=== PATIENT | female | born 2000 | race Caucasian/White ===

== ENCOUNTER 2025-07-26 13:37 | Outpatient (OUT) | payer OTHER, SELFPAY ==
--- NOTE | 2025-07-26 13:53 | US_ITS ---
[place] [address] Patient Name: JOSE L CANALES MRN: [id number] date: 2000 Sex: F Assigned Patient Location: Current Patient Location: Accession/Order Number: [id number] Exam Date: 07/26/2025 13:55 Report Date: 07/26/2025 16:50 At the request of: ROLANDO CALL APRN, CNM Procedure: US OB BPP w non-stress US OB BPP w non-stress 07/26/2025 2:07 PM SIGNS AND SYMPTOMS: ^Post Term PROTOCOL: Transabdominal sonographic imaging of the gravid uterus COMPARISON: None FINDINGS: Estimated age: 40 weeks and 2 days heart rate: 139 bpm Amniotic fluid index: 19.68 cm with the deepest vertical pocket measuring 7 cm. Biophysical profile: breathing movements: 2/2 Gross body movements: 2/2 tone: 2/2 Amniotic fluid volume: 2/2 US/US OB BPP w non-stress IMPRESSION: Biophysical profile score: 8/8 Impression dictated by: Tr Theodore M.D. 07/26/2025 4:50 PM Dictation Location: [place] [address] Electronically authenticated by: [id number] Y Date: 07/26/2025 16:50
[2025-07-26 14:11] VITALS: BP 114/69; PULSE 109
== END 2025-07-26 14:37 | disposition home or self-care (01) ==
LOC: US 13:42 → FBC 14:08
PROVIDERS: PCP Family Medicine; Visit Provider Midwife
DX: O26.893 Other specified pregnancy related conditions, third trimester (principal); O48.0 Post-term pregnancy
CPT/HCPCS: 76818

== ENCOUNTER 2025-07-29 15:27 | Outpatient (OUT) | payer OTHER, SELFPAY ==
--- NOTE | 2025-07-29 | US_ITS ---
[address] [address] Patient Name: JOSE L CANALES MRN: [id number] date: 2000 Sex: F Assigned Patient Location: [facility] Current Patient Location: [facility] Accession/Order Number: [id number] Exam Date: 07/29/2025 15:35 Report Date: 07/29/2025 16:17 At the request of: ROLANDO CALL APRN, CNM Procedure: US OB BPP w non-stress Biophysical profile. Reason for exam: Post dates COMPARISON: 07/26/2025 TECHNIQUE: Transabdominal imaging of the gravid uterus was obtained. FINDINGS: The network firewall engineer reports a BPP of 8 out of 8. DAVID is normal at 13.1 cm. heart rate 136 bpm. US/US OB BPP w non-stress IMPRESSION: BPP 8 out of 8. Impression dictated by: Siva Sung Jr., D.O. 07/29/2025 4:17 PM Dictation Location: [place] [address] Electronically authenticated by: [id number] Y Date: 07/29/2025 16:17
[2025-07-29 15:49] VITALS: BP 125/77; PULSE 92
== END 2025-07-29 16:45 | disposition home or self-care (01) ==
LOC: US 15:32 → FBC 15:33
PROVIDERS: PCP Family Medicine; Visit Provider Midwife
DX: O26.893 Other specified pregnancy related conditions, third trimester (principal); O48.0 Post-term pregnancy; Z3A.40 40 weeks gestation of pregnancy
CPT/HCPCS: 76818

== ENCOUNTER 2025-07-31 07:48 | Inpatient (IN) | payer OTHER, SELFPAY ==
--- OUTSIDE RECORDS SUMMARY | 2025-07-22 13:30 | XMS_ITS | Encounter Summary ---
Author Organization [facility] Address [address] [place] [address] Care Team Providers Care Labor Relations Director Name Role Phone Marino Joseph MD Primary Care Provider [phone] Encounter Details DateTypeDepartmentCare Team (Latest Contact Info)Xkpizoidspa09/08/2025 1:30 PM ESTRoutine [facility] [address] [place] [address] Maria T Montejo, CNM [address] [place], [place] [id number] Encounter for care of first , third trimester ([facility]) (Primary Dx) Social History Tobacco UseTypesPacks/DayYears UsedDateSmoking Tobacco: NeverPassive Smoke Exposure: PastSmokeless Tobacco: NeverAlcohol UseStandard Drinks/WeekCommentsYes 0 (1 standard drink = 0.6 oz pure alcohol)Caffine intake: 3-4 per week, energy drinks while on campus, not while home for the summerHumiliation, Afraid, Rape, and Kick questionnaireAnswerDate RecordedWithin the last year, have you been afraid of your partner or ex-partner?No06/29/2023Within the last year, have you been humiliated or emotionally abused in other ways by your partner or ex-partner?Yes06/29/2023Within the last year, have you been kicked, hit, slapped, or otherwise physically hurt by your partner or ex-partner?No06/29/2023 Within the last year, have you been raped or forced to have any kind of sexual activity by your partner or ex-partner?No06/29/2023Social Connection and Isolation PanelAnswerDate RecordedIn a typical week, how many times do you talk on the phone with family, friends, or neighbors?Three times a week06/29/2023How often do you get together with friends or relatives?More than three times a week 06/29/2023How often do you attend restorationist or anglican services?Patient declined 06/29/2023o you belong to any clubs or organizations such as restorationist groups, unions, fraternal or athletic groups, or school groups?No06/29/2023How often do you attend meetings of the clubs or organizations you belong to?Patient declined 06/29/2023re you , , , , never , or living with a partner?Patient xoivsxki53/15/2023UDIT-CAnswerDate RecordedQ1: How often do you have a drink containing alcohol?2-4 times a month2023Q2: How many drinks containing alcohol do you have on a typical day when you are drinking?1 or Q3: How often do you have six or more drinks on one occasion?Never2023Overall Financial Resource Strain (CARDIA)AnswerDate RecordedHow hard is it for you to pay for the very basics like food, housing, medical care, and heating?Not very hard06/29/2023HQ-2AnswerDate RecordedPatient Health Questionnaire-2 Uvuqj743Fin[facility] [place] of Occupational Health - Occupational Stress QuestionnaireAnswerDate RecordedDo you feel stress - tense, restless, nervous, or anxious, or unable to sleep at night because your mind is troubled all the time - these days?To some xbenkt9606/29/2023Exercise Vital SignAnswerDate RecordedOn average, how many days per week do you engage in moderate to strenuous exercise (like a brisk walk)?Patient mditlnjc93/15/2023On average, how many minutes do you engage in exercise at this level?Patient ajyxpqgr45/15/2023Hunger Vital SignAnswerDate RecordedWithin the past 12 months, you worried that your food would run out before you got the money to buymore. Never true06/29/2023Within the past 12 months, the food you bought just didn't last and you didn't have money to get more.Never true06/29/2023RAPARE - TransportationAnswerDate RecordedIn the past 12 months, has lack of transportation kept you from medical appointments or from getting medications?No 06/29/2023In the past 12 months, has lack of transportation kept you from meetings, work, or from getting things needed for daily living?No06/29/2023 Housing Stability Vital SignAnswerDate RecordedIn the last 12 months, was there a time when you were not able to pay the mortgage or rent on time?No06/29/2023In the last 12 months, how many places have you lived?In the last 12 months, was there a time when you did not have a steady place to sleep or slept in [facility] (including now)?No06/29/2023Estimated Date of Delivery ShljogtgAxd88/10/2025Based on UltrasoundSex and Gender InformationValueDate RecordedSex Assigned at XfbouTemyal46/12/2023 9:46 AM EDTLegal SexFemale 10/27/2022 6:38 PM EDTGender FucryfonVdmrkc91/12/2023 9:46 AM EDTSexual OrientationChoose not to qivewfjn08/12/2023 9:46 AM EDTdocumented as of this encounter Last Filed Vital Signs Vital SignReadingTime TakenCommentsBlood Ryguozyi670/7007/22/2025 1:22 PM EST Pulse--Temperature--Respiratory Rate--Oxygen Saturation--Inhaled Oxygen Concentration--Uedzpx37.3 kg (166 lb)07/22/2025 1:22 PM ESTHeight--Body Mass Index34.22109/01/2024 9:04 AM ESTdocumented in this encounter Progress Notes * Tawanna Olivas MA - 07/22/2025 1:30 PM EST Subjective No chief complaint on file. Ildefonso Chang is a 24 y.o. at 39w5d with a working estimated date of delivery of 07/24/2025, by Ultrasound who presents for a routine visit. She denies vaginal bleeding, leakage of fluid, decreased movements, or contractions. OB History Para Term AB Living 2 SAB IAB Ectopic Multiple Live Births # Outcome Date GA Lbr Vin/2nd Weight Sex Type Anes PTL Lv 2 Current 1 Her is complicated by: Late transfer of care, anxiety/depression Objective Physical Exam Weight: 166 lb Expected Total Weight Gain: 15 lb-25 lb Pregravid BMI: 27.22 BP: 110/70 Urine protein-negative Urine glucose-negative Assessment/Plan Continue vitamin. Labs reviewed. GBS taken. Expected mode of delivery Follow up in 1 week for a routine visit. * Maria T Montejo CNM - 07/22/2025 1:30 PM EST Subjective No chief complaint on file. Ildefonso Chang is a 24 y.o. at 39w5d with a working estimated date of delivery of 07/24/2025, by Ultrasound who presents for a routine visit. She denies vaginal bleeding, leakage of fluid, decreased movements, or contractions. OB History Para Term AB Living 2 SAB IAB Ectopic Multiple Live Births # Outcome Date GA Lbr Vin/2nd Weight Sex Type Anes PTL Lv 2 Current 1 Her is complicated by: Late transfer to [place], relocated Objective Physical Exam Weight: 166 lb Expected Total Weight Gain: 15 lb-25 lb Pregravid BMI: 27.22 BP: 110/70 Urine protein negative Urine glucose negative Assessment/Plan Continue vitamin. Labs reviewed. GBS taken. Expected mode of delivery Follow up in 1 week for a routine visit. documented in this encounter Plan of Treatment DateTypeDepartmentCare Team (Latest Contact Info)Jvyhqciwwbe25/17/2025 9:30 AM ESTRoutine [facility] [address] [place] [address] Maria T Montejo CNM [address] [place], [place] [id number] documented as of this encounter Goals GoalPatient Goal TypeAssociated ProblemsRecent ProgressPatient-Stated?Author Reminders Care PlanOB RemindersNoOpen Scheduling, Backgrounddocumented as of this encounter Visit Diagnoses Diagnosis Encounter for care of first , third trimester ([facility])- Primary documented in this encounter Additional Health Concerns Active ProblemsNoted DateDiagnosed DateOB Wolegxjae22/03/2025 AssessmentNoted TimePHQ-9 Depression Total Score: 12009/22/2023 2:00 PM EST documented as of this encounter Care Teams Team MemberRelationshipSpecialtyStart DateEnd Date Marino Joseph MD [address] [place], [place] [id number] PCP - GeneralFamily Dlxojcuh63/12/25documented as of this encounter
--- OUTSIDE RECORDS SUMMARY | 2025-07-30 15:15 | XMS_ITS | Encounter Summary ---
Author Organization [facility] Address [address] [place] [place] [address] Care Team Providers Care Information Developer Name Role Phone Marino Joseph MD Primary Care Provider [phone] Encounter Details DateTypeDepartmentCare Team (Latest Contact Info)Hxvhaktujqp50/16/2025 3:15 PM ESTAncillary Procedure [facility] [address] [place] [address] Post-term , 40-42 weeks of gestation ([facility]) Social History Tobacco UseTypesPacks/DayYears UsedDateSmoking Tobacco: NeverPassive [...] a week 06/29/2023How often do you attend christianity or anabaptist services?Patient declined 06/29/2023o you belong to any clubs or organizations such as christianity groups, unions, fraJukely or athletic groups, or school groups?No06/29/2023How often do you attend meetings of the clubs or organizations you belong to?Patient declined 06/29/2023re you , , , , never , or living with a partner?Patient angyjcuw29/15/2023UDIT-CAnswerDate RecordedQ1: How often do you have a [...] and heating?Not very hard06/29/2023HQ-2AnswerDate RecordedPatient Health Questionnaire-2 Rvggk148[facility] [place] of Occupational Health - Occupational Stress QuestionnaireAnswerDate RecordedDo you feel stress - tense, restless, nervous, or anxious, or unable to sleep at night because your mind is troubled all the time - these days?To some nvenfu9706/29/2023Exercise Vital SignAnswerDate RecordedOn average, how many days per week do you engage in moderate to strenuous exercise (like a brisk walk)?Patient hvluklcd68/15/2023On average, how many minutes do you engage in exercise at this level?Patient cwdcrqiq84/15/2023Hunger Vital SignAnswerDate RecordedWithin the past 12 months, [...] steady place to sleep or slept in [facility] (including now)?No06/29/2023Estimated Date of Delivery NyryuhfnFuu61/10/2025Based on UltrasoundSex and Gender InformationValueDate RecordedSex Assigned at CekcfVzhnie24/12/2023 9:46 AM EDTLegal SexFemale 10/27/2022 6:38 PM EDTGender GlcgixazSdcbkv69/12/2023 9:46 AM EDTSexual OrientationChoose not to adxpxxwr66/12/2023 9:46 AM EDTdocumented as of this encounter Plan of Treatment DateTypeDepartmentCare Team (Latest Contact Info)Zbawnfuzrkq45/17/2025 9:30 AM ESTRoutine [facility] [address] [place] [address] Maria T Montejo, EVY [address] [place] [address] NameTypePriorityAssociated DiagnosesDate/TimeUS OB follow up transabdominal approachImagingRoutine Post-term , 40-42 weeks of gestation ([facility]) 07/30/2025 3:42 PM ESTdocumented as of this encounter Goals GoalPatient Goal TypeAssociated ProblemsRecent ProgressPatient-Stated?Author Reminders Care PlanOB RemindersNoOpen Scheduling, Backgrounddocumented as of this encounter Visit Diagnoses Diagnosis Post-term , 40-42 weeks of gestation ([facility]) documented in this encounter Additional Health Concerns Active ProblemsNoted DateDiagnosed DateOB Rpsidvsmx60/03/2025 AssessmentNoted TimePHQ-9 Depression Total Score: 12009/22/2023 2:00 PM EST documented as of this encounter Care Teams Team MemberRelationshipSpecialtyStart DateEnd Date Marino Joseph MD [address] [place] [address] PCP - GeneralFamily Qbhamdoh79/12/25documented as of this encounter
[2025-07-31] VITALS (60 sets, daily range): BP systolic 91–162; BP diastolic 50–99; PULSE 90–157; TEMP 36.9–38.1
--- OUTSIDE RECORDS SUMMARY | 2025-07-31 02:16 | XMS_ITS | Clinical Summary ---
Author Organization [facility] Address [address] [place] [address] Care Team Providers Care Development Mgr Name Role Phone Marino Joseph MD Primary Care Provider [phone] Allergies No known active allergies Medications MedicationSigDispense QuantityRefillsLast FilledStart DateEnd DateStatus Vit-Fe Fumarate-FA ( Vitamins) 28-0.8 MG tablet Indications: related condition in third trimester (HHS-HCC)Take 1 tablet by mouth Daily 30 tablet 5Active Vit-Fe Fumarate-FA ( Vitamins) 28-0.8 MG tablet Take 1 tablet by mouth DailyDiscontinued(Reorder) Active Problems ProblemNoted DateDiagnosed DateTendonitis of ankle, left06/29/2023Tendonitis of wrist, left06/29/20231703Qcqbgbe45/06/2023Elevated platelet count01/18/2023Moderate episode of recurrent major depressive netukccz95/06/2023Overweight (BMI 25.0-29.9)01/18/2023Estimated Date of UtscejfgQzziglqcQkg98/10/2025ased on Ultrasound Resolved Problems ProblemNoted DateDiagnosed DateResolved DateAllergic wrvyqwys78/06/2023 06/29/2023Enlarged uapfvtq95 Encounters DateTypeDepartmentCare ZvhqZfcrsamxpdo69/16/2025 3:15 PM ESTAncillary Procedure [facility] [address] [phone] Post-term , 40-42 weeks of gestation ([facility])07/30/2025Travel 07/30/2025Orders Only [facility] [address] [place] [phone] Rolando Montejo CNM Post-term , 40-42 weeks of gestation ([facility])5Clinisync Result Encounter [facility] External Department Unsolicited Rolando Montejo CNM 5Clinisync Result Encounter [facility] External Department Unsolicited Rolando Montejo CNM 07/26/2025Orders Only [facility] [address] [place] [phone] Rolando Montejo CNM Post-term , 40-42 weeks of gestation ([facility])07/22/2025 1:30 PM EST Routine [facility] [address] [place] [phone] Rolando Montejo CNM Encounter for care of first , third trimester ([facility]) (Primary Dx)5Bamboo flowsheet [facility] [address] [place] [phone] Rolando Montejo CNM 07/15/2025 1:30 PM ESTRoutine [facility] [address] [place] [phone] Rolando Montejo CNM Encounter for care of first , third trimester ([facility]) (Primary Dx)5Bamboo flowsheet [facility] [address] [place] [phone] Rolando Montejo CNM 07/08/2025Refill [facility] [address] [place] [address] Marino Joseph MD related condition in third trimester ([facility])07/02/2025 9:00 AM EST Office Visit [facility] [address] [facility] [address] Marino Joseph MD Routine general medical examination at a health care facility (Primary Dx) 07/02/20257674Ztrpql35/17/2025 2:00 PM ESTInitial [facility] [address] [place] [address] Rolando Montejo CNM GA: 15z6p7008/31/2024amboo flowsheet [facility] [address] [place] [address] Rolando Montejo CNM 06/20/2025Telephone [facility] [address] [facility] [phone] Marino Joseph MD due for apptfrom Last 3 Months Immunizations ImmunizationAdministration DatesNext DueDTaP, Hbnxvogbzea01/20/2005,09/04/2001, 03/01/2001,2000,2000HPV, Amufrflszrce30/15/2014,08/17/2013, 06/28/2013Hep A, ped/adol, 2 dose12/27/2013,06/28/2013Hep B, Adolescent or Uxmgkgczr64/21/2002,2000,2000IPV09/03/2004,03/01/2001,2000, 2000Influenza, injectable, quadrivalent, preservative free04/27/2019, 05/26/2017,06/09/2015Influenza, seasonal, jbsyjrvqrf02/15/6326NYW5409/03/2004, 09/04/2001Meningococcal JQQ1P7606/28/2013Tdap04/09/20135739Ueyenbikh97/03/2014, 09/04/2001 Family History Medical HistoryRelationNameCommentsAlcohol abuseNeg HxDrug abuseNeg HxMelanoma Neg HxRelationNameStatusCommentsFatherAliveMotherAliveSister2 Social History Tobacco UseTypesPacks/DayYears UsedDateSmoking Tobacco: NeverPassive Smoke Exposure: PastSmokeless Tobacco: Never Tobacco Cessation:Counseling Given: Not Answered Alcohol UseStandard Drinks/WeekCommentsYes0 (1 standard drink = 0.6 oz pure alcohol)Caffine intake: 3-4 per week, energy drinks while on campus, not while home for the summerHumiliation, Afraid, Rape, and Kick questionnaireAnswerDate RecordedWithin the last year, have you been afraid of your partner or ex-partner?No06/29/2023Within the last year, have you been humiliated or emotionally abused in other ways by your partner or ex-partner?Yes06/29/2023 Within the last year, have you been kicked, hit, slapped, or otherwise physically hurt by your partner or ex-partner?No06/29/2023Within the last year, have you been raped or forced to have any kind of sexual activity by your part ner or ex-partner?No06/29/2023Social Connection and Isolation PanelAnswerDate RecordedIn a typical week, how many times do you talk on the phone with family, friends, or neighbors?Three times a week06/29/2023How often do you get together with friends or relatives?More than three times a week06/29/2023How often do you attend yarsani or scientology services?Patient snlonjyh98/15/2023o you belong to any clubs or organizations such as yarsani groups, unions, fraternal or athletic groups, or school groups?No06/29/2023How often do you attend meetings of the clubs or organizations you belong to?Patient ksitbwks04/15/2023re you , , , , never , or living with a partner?Patient /15/2023UDIT-CAnswerDate RecordedQ1: How often do you have a [...] and heating?Not very hard06/29/2023HQ-2AnswerDate RecordedPatient Health Questionnaire-2 Score3 09/22/2023[facility] - Occupational Stress QuestionnaireAnswerDate RecordedDo you feel stress - tense, restless, nervous, or anxious, or unable to sleep at night because yourmind is troubled all the time - these days?To some pbeoom3406/29/2023Exercise Vital SignAnswerDate Recorded On average, how many days per week do you engage in moderate to strenuous exercise (like a brisk walk)?Patient qttdevny76/15/2023On average, how many minutes do you engage in exercise at this level?Patient basrfhnz10/15/2023Hunger Vital SignAnswerDate RecordedWithin the past 12 months, you worried that your food would run out before you got the money to buymore.Never true06/29/2023 Within the past 12 months, the food you bought just didn't last and you didn't have money to get more.Never true06/29/2023RAPARE - TransportationAnswerDate RecordedIn the past 12 months, has lack of transportation kept you from medical appointments or from getting medications?No06/29/2023In the past 12 months, has lack of transportation kept you from meetings, work, or from getting things needed for daily living?No06/29/2023Housing Stability Vital SignAnswerDate RecordedIn the last 12 months, was there a time when you were not able to pay the mortgage or rent on time?No06/29/2023In the last 12 months, how many places have you lived?In the last 12 months, was there a time when you did not have a steady place to sleep or slept in bloomingdaleelter (including now)?No 11/15/2023Estimated Date of UcxxxcvtJeyctjbnHby21/10/2025Based on UltrasoundSex and Gender InformationValueDate RecordedSex Assigned at Atgphb4501/24/2023 9:46 AM EDTLegal OyfPglfco48/15/2023 6:38 PM EDTGender Identity Lramee8101/24/2023 9:46 AM EDTSexual OrientationChoose not to zfqczuop58/12/2023 9:46 AM EDT Last Filed Vital Signs Vital SignReadingTime TakenCommentsBlood Dpovyiiq388/7007/22/2025 1:22 PM EST Xxxju489207/02/2025 9:04 AM WUPZbfvubatytk08.3 ??C (97.4 ??F)07/02/2025 9:04 AM ESTRespiratory Mcko976509/01/2024 9:04 AM ESTOxygen Vrgbseokro95%07/02/2025 9:04 AM ESTInhaled Oxygen Concentration--Kdadxu26.3 kg (166 lb)07/22/2025 1:22 PM EST Ggyrgj107.3 cm (4' 10.4 )07/02/2025 9:04 AM ESTBody Mass Index34.22109/01/2024 9:04 AM EST Plan of Treatment DateTypeDepartmentCare Team (Latest Contact Info)Rabjcqfgaja05/17/2025 9:30 AM ESTRoutine [facility] [address] [place] [phone] Rolando Montejo CNM [address] [place] [address] Health MaintenanceDue DateLast DoneCommentsCOVID-19 Vaccine ( season) 504/, 11/12/2020Influenza VziymunWfusjfqeb02/15/2025, 04/27/2019, 05/26/2017, Additional history existsPneumococcal Vaccine: Pediatrics (0 to 5 Years) and At-Risk Patients (6 to 64 Years)Aged OutNo longer eligible based on patient's age to complete this topic Goals GoalPatient Goal TypeAssociated ProblemsRecent ProgressPatient-Stated?Author Reminders Care PlanOB RemindersNoOpen Scheduling, Background Procedures Procedure NamePriorityDate/TimeAssociated DiagnosisCommentsUS OB BPP W NON-XMIXBK0507/29/2025 4:17 PM EST US OB BPP W NON-GUSHBI5507/26/2025 4:50 PM EST DRUG TOX MONITORING 6 SCREEN, HKVIDSitnqce26/17/2025 2:30 PM EST related condition in third trimester (HHS-HCC) CULTURE, URINE, JAOMTMHQehponz82/17/2025 2:30 PM EST related condition in third trimester (HHS-HCC) from Last 3 Months Results * US OB BPP W NON-STRESS (07/29/2025 4:17 PM EST) Only the most recent of2 resultswithin the time period is included. Anatomical RegionLateralityModalityOtherSpecimen (Source)Anatomical Location / LateralityCollection Method / VolumeCollection TimeReceived Time07/29/2025 4:17 PM EST Narrative 07/29/2025 4:20 PM EST [facility] ?[address] ? [place] [address] ? Ultrasound Report ? Signed ? Patient: JONAS CHANGNDRA Daniel ?MR#: [id number] ?? : 2000 ?Acct:[id number] ?? Age/Sex: 24 / F ?ADM Date: 07/29/25 ?? Loc: [facility] ??250-1 ? Attending Dr: ROLANDO MONTEJO APRN, CNM ? Ordering Physician: ROLANDO MONTEJO APRN, CNM ?? Date of Service: 07/29/25 ?? Procedure(s): US OB BPP w non-stress ?? Accession Number(s): [id number] ? cc: ROLANDO MONTEJO APRN, CNM; MARINO JOSEPH M.D. ? [facility] ? [address] ? [place] [address] ? Patient Name: ?? JOSE L CHANG ? MRN: [facility]:[id number] ? date: 2000 ?Sex: F ?? Assigned Patient Location: [facility] ?? Current Patient Location: [facility] ?? Accession/Order Number: [id number] ?? Exam Date: 07/29/2025 ??15:35 ?Report Date: 07/29/2025 ??16:17 ? At the request of: ?? ROLANDO ??FLORO ??VICE PRESIDENT OF RECRUITING CNM ? Procedure: ??US OB BPP w non-stress ? Biophysical profile. ? Reason for exam: Post dates ? COMPARISON: 07/26/2025 ? TECHNIQUE: Transabdominal imaging of the gravid uterus was obtained. ? FINDINGS: The director sanitation bureau reports a BPP of 8 out of 8. ??DAVID is normal at 13.1 ?? cm. ?? heart rate 136 bpm. ? US/US OB BPP w non-stress ?? IMPRESSION: BPP 8 out of 8. ? Impression dictated by: Siva Sung Jr., D.OAlejandra ??07/29/2025 4:17 PM ? Dictation Location: [facility]- ? Electronically authenticated by: [id number] ??Y ?? Date: 07/29/2025 ??16:17 ? Dictated By: ?Siva Sung M.D. ? Signed By: ?07/29/250 ? DD/ 1617 ? TD/TT: ? Inspector And Clipper: Procedure Note Radiology, Radiologist, MD - 07/29/2025 [place] [address] Ultrasound Report Signed Patient: JOSE L CHANG MMR#: [id number] : 2000Acct:[id number] Age/Sex: 24 / FADM Date: 07/29/25 Loc: [facility] 250-[address]: ROLANDO MONTEJO APRN, CNM Ordering Physician: ROLANDO MONTEJO APRN, CNM Date of Service: 07/29/25 Procedure(s): US OB BPP w non-stress Accession Number(s): [id number] cc: ROLANDO MONTEJO APRN, CNM; MARINO JOSEPH M.D. The [address] [address] Patient Name: JOSE L CHANG MRN: [facility]:[id number] date: 2000 Sex: F Assigned Patient Location: [facility] Current Patient Location: [facility] Accession/Order Number: [id number] Exam Date: 07/29/2025 15:35 Report Date: 07/29/2025 16:17 At the request of: ROLANDO MONTEJO APRN, CNM Procedure: US OB BPP w non-stress Biophysical profile. Reason for exam: Post dates COMPARISON: 07/26/2025 TECHNIQUE: Transabdominal imaging of the gravid uterus was obtained. FINDINGS: The director sanitation bureau reports a BPP of 8 out of 8. DAVID is normal at13.1 cm. heart rate 136 bpm. US/US OB BPP w non-stress IMPRESSION: BPP 8 out of 8. Impression dictated by: Siva Sung Jr., D.O. 07/29/2025 4:17 PM Dictation Location: [place] [address] Electronically authenticated by: [id number] Y Date: 6:17 Dictated By: Siva Sung M.D. Signed By:07/29/25 1620 DD/ 1617 TD/TT: Inspector And Clipper: Authorizing ProviderResult TypeResult StatusValeramses CAGLELINISYNC IMAGING Edited Result - Final * DRUG TOX MONITORING 6 SCREEN, URINE (07/01/2025 2:30 PM EST)ComponentValueRef RangeTest MethodAnalysis TimePerformed AtPathologist SignatureAMPHETAMINES NEGATIVE<500 ng/mLQUESTBARBITURATESNEGATIVE<300 ng/mLQUESTBENZODIAZEPINES NEGATIVE<100 ng/mLQUESTCOCAINE METABOLITESNEGATIVE<150 ng/mLQUESTMARIJUANA METABOLITE 20NEGATIVE<20 ng/mLQUESTMETHADONE METABOLITENEGATIVE<100 ng/mLQUEST OPIATESNEGATIVE<100 ng/mLQUESTOXYCODONENEGATIVE<100 ng/mLQUESTPHENCYCLIDINE NEGATIVE<25 ng/mLQUEST(ALWAYS MESSAGE)QUESTComment: See Note 1 Note 1 This drug testing is for medical treatment only. ?? The results are presumptive; based only on screening methods, and they have not been confirmed by a definitive method. Analysis was performed as non-forensic testing and these results should be used only by healthcare providers to render diagnosis or treatment, or to monitor progress of medical conditions. For assistance with interpreting these drug results, please contact a [facility] Toxicology Specialist: [phone] ( ), M-F, 8am-6pm EST. Specimen (Source)Anatomical Location / LateralityCollection Method / Volume Collection TimeReceived Time07/01/2025 2:30 PM EST07/02/2025 4:36 AM EST Narrative Resulting Agency Comment Performing Organization Information ?Site ID: QPT ?Name: [facility] ?Address: [address] [place] [address], [address] [place] [phone] ?Director: Angelo Garland MD Authorizing ProviderResult TypeResult StatusLahomaramses Montejo [facility] URINE ORDERABLESFinal ResultPerforming OrganizationAddressty/State/ZIP CodePhone Number [facility] * Urine culture (07/01/2025 2:30 PM EST)ComponentValueRef RangeTest Method Analysis TimePerformed AtPathologist SignatureMICRO [id number] SPECIMEN QUALITYAdequateQUESTSOURCE: (QUEST)URINEQUESTSTATUSFINALQUESTRESULT SEE NOTEQUESTComment: Mixed genital padmini isolated. These superficial bacteria are not indicative of a urinary tract infection. No further organism identification is warranted on this specimen. If clinically indicated, recollect clean-catch, mid-stream urine and transfer immediately to Urine Culture Transport Tube. Specimen (Source)Anatomical Location / LateralityCollection Method / Volume Collection TimeReceived TimeUrineUrine specimen obtained by clean catch procedure / Uodoysk7007/01/2025 2:30 PM EST07/02/2025 4:36 AM EST Narrative Resulting Agency Comment Performing Organization Information ?Site ID: QPT ?Name: [facility] ?Address: [address] [place] [address], [address] [place] [phone] ?Director: Angelo Garland MD Authorizing ProviderResult TypeResult Kathleen [facility] MICROBIOLOGY - GENERAL ORDERABLESFinal ResultPerforming OrganizationAddressty/State/ZIP CodePhone Number [facility] from Last 3 Months Additional Health Concerns Active ProblemsNoted DateDiagnosed DateOB Yuinvgxvh19/03/2025 Insurance Care Teams Team MemberRelationshipSpecialtyStart DateEnd Date Marino Joseph MD [address] [place] [address] PCP - GeneralFamily Mcffauhd09/12/25
--- OUTSIDE RECORDS SUMMARY | 2025-07-31 02:16 | XMS_ITS | Encounter Summary ---
Author Organization [facility] Address [address] [place] [address] Care Team Providers Care Change Lead Name Role Phone Marino Joseph MD Primary Care Provider [phone] Encounter Details DateTypeDepartmentCare Team (Latest Contact Info)Heanyfyxran24/12/2025Clinisync Result Encounter [facility] External Department Unsolicited Rolando Montejo, CNM [address] [place] [id number] Social History Tobacco UseTypesPacks/DayYears UsedDateSmoking Tobacco: NeverPassive [...] a week 06/29/2023How often do you attend mormon or pentecostal services?Patient declined 06/29/2023o you belong to any clubs or organizations such as mormon groups, unions, fraCahaba Pharm[employer] or athletic groups, or school groups?No06/29/2023How often do you attend meetings of the clubs or organizations you belong to?Patient declined 06/29/2023re you , , , , never , or living with a partner?Patient zkhoaupj84/15/2023UDIT-CAnswerDate RecordedQ1: How often do you have a [...] and heating?Not very hard06/29/2023HQ-2AnswerDate RecordedPatient Health Questionnaire-2 [facility]18[facility] [place] of Occup[facility] Health - Occupational Stress QuestionnaireAnswerDate RecordedDo you feel stress - tense, restless, nervous, or anxious, or unable to sleep at night because your mind is troubled all the time - these days?To some vqmlit2006/29/2023Exercise Vital SignAnswerDate RecordedOn average, how many days per week do you engage in moderate to strenuous exercise (like a brisk walk)?Patient /15/2023On average, how many minutes do you engage in exercise at this level?Patient /15/2023Hunger Vital SignAnswerDate RecordedWithin the past 12 months, [...] steady place to sleep or slept in green riverelter (including now)?No06/29/2023Estimated Date of Delivery BrlmfmpgGsv99/10/2025Based on UltrasoundSex and Gender InformationValueDate RecordedSex Assigned at KrnyzUhvlhs98/12/2023 9:46 AM EDTLegal SexFemale 10/27/2022 6:38 PM EDTGender XvmbcosjTuussv13/12/2023 9:46 AM EDTSexual OrientationChoose not to eybivzni54/12/2023 9:46 AM EDTdocumented as of this encounter Plan of Treatment DateTypeDepartmentCare Team (Latest Contact Info)Nnxndznvmgm41/17/2025 9:30 AM ESTRoutine [facility] [address] [place] [address] Rolando Montejo, EVY [address] [place] [address] documented as of this encounter Goals GoalPatient Goal TypeAssociated ProblemsRecent ProgressPatient-Stated?Author Reminders Care PlanOB RemindersNoOpen Scheduling, Backgrounddocumented as of this encounter Procedures Procedure NamePriorityDate/TimeAssociated DiagnosisCommentsUS OB BPP W NON-JOBNHH1107/26/2025 4:50 PM EST documented in this encounter Results * US OB BPP W NON-STRESS (07/26/2025 4:50 PM EST)Anatomical Region LateralityModalityOtherSpecimen (Source)Anatomical Location / Laterality Collection Method / VolumeCollection TimeReceived Time07/26/2025 4:50 PM EST Narrative 07/26/2025 4:53 PM EST [facility] ?[address] ? [place] [address] ? Ultrasound Report ? Signed ? Patient: JOSE L CHANG ?MR#: [id number] ?? : 2000 ?Acct:[id number] ?? Age/Sex: 24 / F ?ADM Date: 07/26/25 ?? Loc: US ? Attending Dr: ROLANDO MONTEJO APRN, CNM ? Ordering Physician: ROLANDO MONTEJO APRN, CNM ?? Date of Service: 07/26/25 ?? Procedure(s): US OB BPP w non-stress ?? Accession Number(s): [id number] ? cc: ROLANDO MONTEJO APRN, CNM; MARINO JOSEPH M.D. ? [facility] ? [address] ? [place] [address] ? Patient Name: ?? JOSE L CHANG ? MRN: [facility]:[id number] ? date: 2000 ?Sex: F ?? Assigned Patient Location: US ?? Current Patient Location: ? Accession/Order Number: [id number] ?? Exam Date: 07/26/2025 ??13:55 ?Report Date: 07/26/2025 ??16:50 ? At the request of: ?? ROLANDO ??JAKUB ??HUMEAR RATLIFF ? Procedure: ??US OB BPP w non-stress ? US OB BPP w non-stress ??07/26/2025 2:07 PM ? SIGNS AND SYMPTOMS: ?? Post Term ? PROTOCOL: Transabdominal sonographic imaging of the gravid uterus ? COMPARISON: None ? FINDINGS: ? Estimated age: 40 weeks and 2 days ? heart rate: 139 bpm ? Amniotic fluid index: 19.68 cm with the deepest vertical pocket measuring 7 ?? cm. ? Biophysical profile: ? breathing movements: 2/2 ? Gross body movements: 2/2 ? tone: 2/2 ? Amniotic fluid volume: 2/2 ? US/US OB BPP w non-stress ?? IMPRESSION: ? Biophysical profile score: 88 ? Impression dictated by: Tr Theodore M.D. ??07/26/2025 4:50 PM ? Dictation Location: [facility]IO-PC-23 ? Electronically authenticated by: [id number] ??Y ?? Date: 07/26/2025 ??16:50 ? Dictated By: ?Tr Theodore M.D. ? Signed By: ?07/26/251652 ? DD/ 1650 ? TD/TT: ? Door Liner Helper: Procedure Note Radiology, Radiologist, MD - 07/26/2025 [place] [address] Ultrasound Report Signed Patient: JOSE L CHANG MMR#: [id number] : 2000Acct:[id number] Age/Sex: 24 / FADM Date: 07/26/25 Loc: US Attending Dr: ROLANDO MONTEJO APRN, CNM Ordering Physician: ROLANDO MONTEJO APRN, CNM Date of Service: 07/26/25 Procedure(s): US OB BPP w non-stress Accession Number(s): [id number] cc: ROLANDO MONTEJO APRN, CNM; MARINO JOSEPH M.D. The [address] [address] Patient Name: JOSE L CHANG MRN: [id number] date: 2000 Sex: F Assigned Patient Location: US Current Patient Location: Accession/Order Number: [id number] Exam Date: 07/26/2025 13:55 Report Date: 07/26/2025 16:50 At the request of: ROLANDO MONTEJO APRN, CNM Procedure: US OB BPP w non-stress US OB BPP w non-stress 07/26/2025 2:07 PM SIGNS AND SYMPTOMS: Post Term PROTOCOL: Transabdominal sonographic imaging of the gravid uterus COMPARISON: None FINDINGS: Estimated age: 40 weeks and 2 days heart rate: 139 bpm Amniotic fluid index: 19.68 cm with the deepest vertical pocket measuring7 cm. Biophysical profile: breathing movements: 2/2 Gross body movements: 2/2 tone: 2/2 Amniotic fluid volume: 2/2 US/US OB BPP w non-stress IMPRESSION: Biophysical profile score: 8/8 Impression dictated by: Tr Theodore M.D. 07/26/2025 4:50 PM Dictation Location: [place] [address] Electronically authenticated by: [id number] Y Date: 6:50 Dictated By: Tr Theodore M.D. Signed By:07/26/251652 DD/ 49 TD/TT: Door Liner Helper: Authorizing ProviderResult TypeResult StatusValerie Eduard Montejo [facility] Edited Result - Final documented in this encounter Visit Diagnoses Not on filedocumented in this encounter Additional Health Concerns Active ProblemsNoted DateDiagnosed DateOB Eccmkbvib19/03/2025 AssessmentNoted TimePHQ-9 Depression Total Score: 12009/22/2023 2:00 PM EST documented as of this encounter Care Teams Team MemberRelationshipSpecialtyStart DateEnd Date Marino Joseph MD [address] [place] [address] PCP - GeneralFamily Sortjqfr12/12/25documented as of this encounter
--- OUTSIDE RECORDS SUMMARY | 2025-07-31 02:16 | XMS_ITS | Encounter Summary ---
Author Organization [facility] Address [address] [place] [address] Care Team Providers Care Size Roller Operator Name Role Phone Marino Joseph MD Primary Care Provider [phone] Encounter Details DateTypeDepartmentCare Team (Latest Contact Info)Zzpaiuyegyz92/15/2025Clinisync Result Encounter [facility] Department Unsolicited Rolando Montejo, CNM [address] [place] [id number] Social History Tobacco UseTypesPacks/DayYears UsedDateSmoking Tobacco: NeverPassive [...] a week 06/29/2023How often do you attend orthodoxy or mormonism services?Patient declined 06/29/2023o you belong to any clubs or organizations such as orthodoxy groups, unions, fra20lines or athletic groups, or school groups?No06/29/2023How often do you attend meetings of the clubs or organizations you belong to?Patient declined 06/29/2023re you , , , , never , or living with a partner?Patient rkmakfvv09/15/2023UDIT-CAnswerDate RecordedQ1: How often do you have a [...] and heating?Not very hard06/29/2023HQ-2AnswerDate RecordedPatient Health Questionnaire-2 Ydzds752[facility] [place] of Occupational Health - Occupational Stress QuestionnaireAnswerDate RecordedDo you feel stress - tense, restless, nervous, or anxious, or unable to sleep at night because your mind is troubled all the time - these days?To some iytikb1906/29/2023Exercise Vital SignAnswerDate RecordedOn average, how many days per week do you engage in moderate to strenuous exercise (like a brisk walk)?Patient zrtrnpud88/15/2023On average, how many minutes do you engage in exercise at this level?Patient kfoplxwa24/15/2023Hunger Vital SignAnswerDate RecordedWithin the past 12 months, [...] steady place to sleep or slept in pinsonelter (including now)?No06/29/2023Estimated Date of Delivery IuxzzdvvSru71/10/2025Based on UltrasoundSex and Gender InformationValueDate RecordedSex Assigned at CdtkbYotnpz83/12/2023 9:46 AM EDTLegal SexFemale 10/27/2022 6:38 PM EDTGender PopdemldWgipns91/12/2023 9:46 AM EDTSexual OrientationChoose not to gftakimv53/12/2023 9:46 AM EDTdocumented as of this encounter Plan of Treatment DateTypeDepartmentCare Team (Latest Contact Info)Cooqefoezaf35/17/2025 9:30 AM ESTRoutine [facility] [address] [place] [address] Rolando Montejo, EVY [address] [place] [address] documented as of this encounter Goals GoalPatient Goal TypeAssociated ProblemsRecent ProgressPatient-Stated?Author Reminders Care PlanOB RemindersNoOpen Scheduling, Backgrounddocumented as of this encounter Procedures Procedure NamePriorityDate/TimeAssociated DiagnosisCommentsUS OB BPP W NON-VFORYV3607/29/2025 4:17 PM EST documented in this encounter Results * US OB BPP W NON-STRESS (07/29/2025 4:17 PM EST)Anatomical Region LateralityModalityOtherSpecimen (Source)Anatomical Location / Laterality Collection Method / VolumeCollection TimeReceived Time07/29/2025 4:17 PM EST Narrative 07/29/2025 4:20 PM EST [facility] ?[address] ? [place] [address] ? Ultrasound Report ? Signed ? Patient: JOSE L CHANG ?MR#: [id number] ?? : 2000 ?Acct:[id number] ?? Age/Sex: 24 / F ?ADM Date: 07/29/25 ?? Loc: [facility] ??250-1 ? Attending Dr: ROLANDO MONTEJO APRN, CNM ? Ordering Physician: ROLANDO MONTEJO APRN, CNM ?? Date of Service: 07/29/25 ?? Procedure(s): US OB BPP w non-stress ?? Accession Number(s): [id number] ? cc: ROLANDO MONTEJO APRN, CNM; MARINO JOSEPH M.D. ? [facility] ? [address] ? [place] [address] ? Patient Name: ?? JOSE L CHANG ? MRN: [facility]:[id number] ? date: 2000 ?Sex: F ?? Assigned Patient Location: [facility] ?? Current Patient Location: [facility] ?? Accession/Order Number: [id number] ?? Exam Date: 07/29/2025 ??15:35 ?Report Date: 07/29/2025 ??16:17 ? At the request of: ?? ROLANDO ??JAKUB ??HUMERA RATLIFF ? Procedure: ??US OB BPP w non-stress ? Biophysical profile. ? Reason for exam: Post dates ? COMPARISON: 07/26/2025 ? TECHNIQUE: Transabdominal imaging of the gravid uterus was obtained. ? FINDINGS: The building supervisor reports a BPP of 8 out of 8. ??DAVID is normal at 13.1 ?? cm. ?? heart rate 136 bpm. ? US/US OB BPP w non-stress ?? IMPRESSION: BPP 8 out of 8. ? Impression dictated by: Siva Sung Jr., D.O. ??07/29/2025 4:17 PM ? Dictation Location: RADIO-PC-22 ? Electronically authenticated by: [id number] ??Y ?? Date: 07/29/2025 ??16:17 ? Dictated By: ?Siva Sung M.D. ? Signed By: ?07/29/25 1620 ? DD/ 1617 ? TD/TT: ? Storehouse Clerk: Procedure Note Radiology, Radiologist, MD - 07/29/2025 [place] [address] Ultrasound Report Signed Patient: JOSE L CHANG MMR#: [id number] : 2000Acct:[id number] Age/Sex: 24 / FADM Date: 07/29/25 Loc: [facility] 250-[address]: ROLANDO MONTEJO APRN, CNM Ordering Physician: ROLANDO MONTEJO APRN, CNM Date of Service: 07/29/25 Procedure(s): US OB BPP w non-stress Accession Number(s): [id number] cc: ROLANDO MONTEJO APRN, CNM; MARINO JOSEPH M.D. The [address] [address] Patient Name: JOSE L CHANG MRN: [id number] date: 2000 Sex: F Assigned Patient Location: [facility] Current Patient Location: [facility] Accession/Order Number: [id number] Exam Date: 07/29/2025 15:35 Report Date: 07/29/2025 16:17 At the request of: ROLNADO MONTEJO APRN, CNM Procedure: US OB BPP w non-stress Biophysical profile. Reason for exam: Post dates COMPARISON: 07/26/2025 TECHNIQUE: Transabdominal imaging of the gravid uterus was obtained. FINDINGS: The building supervisor reports a BPP of 8 out of 8. DAVID is normal at13.1 cm. heart rate 136 bpm. US/US OB BPP w non-stress IMPRESSION: BPP 8 out of 8. Impression dictated by: Siva Sung Jr., D.O. 07/29/2025 4:17 PM Dictation Location: [place] [address] Electronically authenticated by: [id number] Y Date: 6:17 Dictated By: Siva Sung M.D. Signed By:07/29/25 1620 DD/ 161 TD/TT: Storehouse Clerk: Authorizing ProviderResult TypeResult StatusValerie Eduard Montejo [facility] Edited Result - Final documented in this encounter Visit Diagnoses Not on filedocumented in this encounter Additional Health Concerns Active ProblemsNoted DateDiagnosed DateOB Hrpwuodnt37/03/2025 AssessmentNoted TimePHQ-9 Depression Total Score: 12009/22/2023 2:00 PM EST documented as of this encounter Care Teams Team MemberRelationshipSpecialtyStart DateEnd Date Marino Joseph MD [address] [place] [address] PCP - GeneralFamily Uyzimzym86/12/25documented as of this encounter
--- OUTSIDE RECORDS SUMMARY | 2025-07-31 02:16 | XMS_ITS | Encounter Summary ---
Author Organization [facility] Address [address] [place] [address] Care Team Providers Care Universal Branch Consultant Name Role Phone Marino Joseph MD Primary Care Provider [phone] Encounter Details DateTypeDepartmentCare Team (Latest Contact Info)Oprxfisgcki74/16/2025Orders Only [facility] OBGYN [address] [place] [phone] Maria T Montejo, TSERING [address] [place], [place] [phone] Post-term , 40-42 weeks of gestation ([facility]) Social History Tobacco UseTypesPacks/DayYears UsedDateSmoking Tobacco: [...] a week 06/29/2023How often do you attend sabianist or religion services?Patient declined 06/29/2023o you belong to any clubs or organizations such as sabianist groups, unions, fraReverbeo or athletic groups, or school groups?No06/29/2023How often do you attend meetings of the clubs or organizations you belong to?Patient declined 06/29/2023re you , , , , never , or living with a partner?Patient dpgnagrt79/15/2023UDIT-CAnswerDate RecordedQ1: How often do you have a [...] and heating?Not very hard06/29/2023HQ-2AnswerDate RecordedPatient Health Questionnaire-2 Znjox057Finintermount[facility] healthcare [place] of Occupational Health - Occupational Stress QuestionnaireAnswerDate RecordedDo you feel stress - tense, restless, nervous, or anxious, or unable to sleep at night because your mind is troubled all the time - these days?To some mrxzdq9606/29/2023Exercise Vital SignAnswerDate RecordedOn average, how many days per week do you engage in moderate to strenuous exercise (like a brisk walk)?Patient vtkazcgf27/15/2023On average, how many minutes do you engage in exercise at this level?Patient tjketrzk87/15/2023Hunger Vital SignAnswerDate RecordedWithin the past 12 months, [...] steady place to sleep or slept in melvinelter (including now)?No06/29/2023Estimated Date of Delivery KkvahndaEfe49/10/2025Based on UltrasoundSex and Gender InformationValueDate RecordedSex Assigned at CaovmFtljhn52/12/2023 9:46 AM EDTLegal SexFemale 10/27/2022 6:38 PM EDTGender LmnfrssiFywqro74/12/2023 9:46 AM EDTSexual OrientationChoose not to dlkvfuox09/12/2023 9:46 AM EDTdocumented as of this encounter Plan of Treatment DateTypeDepartmentCare Team (Latest Contact Info)Bydppqvilnd65/17/2025 9:30 AM ESTRoutine [facility] [address] [place] [address] Maria T Montejo, EVY [address] [place] [address] NameTypePriorityAssociated DiagnosesDate/TimeUS OB follow up transabdominal approachImagingRoutine Post-term , 40-42 weeks of gestation ([facility]) 07/30/2025 3:42 PM ESTNameTypePriorityAssociated DiagnosesOrder ScheduleUS OB follow up transabdominal approachImagingRoutine Post-term , 40-42 weeks of gestation ([facility]) Expected: 07/30/2025, Expires: 07/30/2026documented as of this encounter Goals GoalPatient Goal TypeAssociated ProblemsRecent ProgressPatient-Stated?Author Reminders Care PlanOB RemindersNoOpen Scheduling, Backgrounddocumented as of this encounter Visit Diagnoses Diagnosis Post-term , 40-42 weeks of gestation ([facility]) documented in this encounter Additional Health Concerns Active ProblemsNoted DateDiagnosed DateOB Mgfzdpnyp02/03/2025 AssessmentNoted TimePHQ-9 Depression Total Score: 1202 2:00 PM EST documented as of this encounter Care Teams Team MemberRelationshipSpecialtyStart DateEnd Date Marino Joseph MD [address] [place] [address] PCP - GeneralFamily Rioqjznn95/12/25documented as of this encounter
--- OUTSIDE RECORDS SUMMARY | 2025-07-31 02:16 | XMS_ITS | Encounter Summary ---
Author Organization [facility] Address [address] [place] [address] Care Team Providers Care Breaker Hand Name Role Phone Marino Joseph MD Primary Care Provider [phone] Encounter Details DateTypeDepartmentCare Team (Latest Contact Info)Pevknrxhgii60/08/2025Bamboo flowsheet [facility] OBGYN [address] [place] [phone] Maria T Montejo, CN [address] [place], [place] [phone] Social History Tobacco UseTypesPacks/DayYears UsedDateSmoking Tobacco: NeverPassive [...] a week 06/29/2023How often do you attend latter day or lutheran services?Patient declined 06/29/2023o you belong to any clubs or organizations such as latter day groups, unions, fraYipit or athletic groups, or school groups?No06/29/2023How often do you attend meetings of the clubs or organizations you belong to?Patient declined 06/29/2023re you , , , , never , or living with a partner?Patient ukrllzyk01/15/2023UDIT-CAnswerDate RecordedQ1: How often do you have a [...] and heating?Not very hard06/29/2023HQ-2AnswerDate RecordedPatient Health Questionnaire-2 Aulrz899Finriverton hospital [place] of Occupational Health - Occupational Stress QuestionnaireAnswerDate RecordedDo you feel stress - tense, restless, nervous, or anxious, or unable to sleep at night because your mind is troubled all the time - these days?To some vlqlar1106/29/2023Exercise Vital SignAnswerDate RecordedOn average, how many days per week do you engage in moderate to strenuous exercise (like a brisk walk)?Patient lpnyhkdz04/15/2023On average, how many minutes do you engage in exercise at this level?Patient bpwjqriy52/15/2023Hunger Vital SignAnswerDate RecordedWithin the past 12 months, [...] steady place to sleep or slept in [place]ter (including now)?No06/29/2023Estimated Date of Delivery WiiadflmEgg09/10/2025Based on UltrasoundSex and Gender InformationValueDate RecordedSex Assigned at FuughWrinbl24/12/2023 9:46 AM EDTLegal SexFemale 10/27/2022 6:38 PM EDTGender FdeofeemFvbevf32/12/2023 9:46 AM EDTSexual OrientationChoose not to utrbichx37/12/2023 9:46 AM EDTdocumented as of this encounter Plan of Treatment DateTypeDepartmentCare Team (Latest Contact Info)Lruhfpzardw08/17/2025 9:30 AM ESTRoutine [facility] [address] [place] [address] Maria T Montejo, EVY [address] [place] [address] documented as of this encounter Goals GoalPatient Goal TypeAssociated ProblemsRecent ProgressPatient-Stated?Author Reminders Care PlanOB RemindersNoOpen Scheduling, Backgrounddocumented as of this encounter Visit Diagnoses Not on filedocumented in this encounter Additional Health Concerns Active ProblemsNoted DateDiagnosed DateOB Ilfukcwcg35/03/2025 AssessmentNoted TimePHQ-9 Depression Total Score: 12009/22/2023 2:00 PM EST documented as of this encounter Care Teams Team MemberRelationshipSpecialtyStart DateEnd Date Marino Joseph MD [address] [place] [address] PCP - GeneralFamily Qkfxulgj62/12/25documented as of this encounter
--- OUTSIDE RECORDS SUMMARY | 2025-07-31 02:16 | XMS_ITS | Encounter Summary ---
Author Organization [facility] Address [address] [place] [address] Care Team Providers Care Underwriting Operations Manager Name Role Phone Marino Joseph MD Primary Care Provider [phone] Encounter Details DateTypeDepartmentCare Team (Latest Contact Info)Kjqqnkqjvdy42/12/2025Orders Only [facility] OBGYN [address] [place] [phone] Maria T Montejo, TSERING [address] [place], [place] [phone] Post-term , 40-42 weeks of gestation ([facility]) Social History Tobacco UseTypesPacks/DayYears UsedDateSmoking Tobacco: NeverPassive [...] a week 06/29/2023How often do you attend amish or rastafari services?Patient declined 06/29/2023o you belong to any clubs or organizations such as amish groups, unions, fraFavor or athletic groups, or school groups?No06/29/2023How often do you attend meetings of the clubs or organizations you belong to?Patient declined 06/29/2023re you , , , , never , or living with a partner?Patient xbeioaps09/15/2023UDIT-CAnswerDate RecordedQ1: How often do you have a [...] and heating?Not very hard06/29/2023HQ-2AnswerDate RecordedPatient Health Questionnaire-2 Guvgt885Finsanpete [facility] hospital [place] of Occupational Health - Occupational Stress QuestionnaireAnswerDate RecordedDo you feel stress - tense, restless, nervous, or anxious, or unable to sleep at night because your mind is troubled all the time - these days?To some yviirq7006/29/2023Exercise Vital SignAnswerDate RecordedOn average, how many days per week do you engage in moderate to strenuous exercise (like a brisk walk)?Patient ybwyimcj87/15/2023On average, how many minutes do you engage in exercise at this level?Patient aejwlfji15/15/2023Hunger Vital SignAnswerDate RecordedWithin the past 12 months, [...] steady place to sleep or slept in ashelter (including now)?No06/29/2023Estimated Date of Delivery VwqpqiocVlp42/10/2025Based on UltrasoundSex and Gender InformationValueDate RecordedSex Assigned at DkzmqCrnpdp38/12/2023 9:46 AM EDTLegal SexFemale 10/27/2022 6:38 PM EDTGender YyafukvmGpcobt00/12/2023 9:46 AM EDTSexual OrientationChoose not to wfjugsub68/12/2023 9:46 AM EDTdocumented as of this encounter Miscellaneous Notes * Addendum Note - Arianne Olivas MA - 07/26/2025 9:22 AM ESTAddended by: ARIANNE OLIVAS on: 07/26/2025 09:59 AM Modules accepted: Orders documented in this encounter Plan of Treatment DateTypeDepartmentCare Team (Latest Contact Info)Pgcsowdqvqg10/17/2025 9:30 AM ESTRoutine [facility] [address] [place] [address] Maria T Montejo CNM [address] [place], [place] [address] NameTypePriorityAssociated DiagnosesOrder ScheduleUS biophysical profile w non stress testImagingRoutine Post-term , 40-42 weeks of gestation ([facility]) Expected: 07/26/2025, Expires: 07/26/2026US biophysical profile w non stress testImagingRoutine Post-term , 40-42 weeks of gestation ([facility]) Expected: 07/29/2025, Expires: 07/26/2026documented as of this encounter Goals GoalPatient Goal TypeAssociated ProblemsRecent ProgressPatient-Stated?Author Reminders Care PlanOB RemindersNoOpen Scheduling, Backgrounddocumented as of this encounter Visit Diagnoses Diagnosis Post-term , 40-42 weeks of gestation ([facility]) documented in this encounter Additional Health Concerns Active ProblemsNoted DateDiagnosed DateOB Cyasqmeol86/03/2025 AssessmentNoted TimePHQ-9 Depression Total Score: 12009/22/2023 2:00 PM EST documented as of this encounter Care Teams Team MemberRelationshipSpecialtyStart DateEnd Marino Joseph MD [address] [place], [place] [phone] PCP - GeneralFamily Lneszikf35/12/25documented as of this encounter
--- OUTSIDE RECORDS SUMMARY | 2025-07-31 02:16 | XMS_ITS | Encounter Summary ---
Author Organization [facility] Address [address] [facility] [place] [address] Care Team Providers Care Subgrade Tester Name Role Phone Marino Joseph MD Primary Care Provider [phone] Encounter Details DateTypeDepartmentCare Team (Latest Contact Info)Ftbontrnfuq58/16/2025Travel Social History Tobacco UseTypesPacks/DayYears UsedDateSmoking Tobacco: NeverPassive [...] a week 06/29/2023How often do you attend mu-ism or church services?Patient declined 06/29/2023o you belong to any clubs or organizations such as mu-ism groups, unions, fraternal or athletic groups, or school groups?No06/29/2023How often do you attend meetings of the clubs or organizations you belong to?Patient declined 06/29/2023re you , , , , never , or living with a partner?Patient qnybaxsl67/15/2023UDIT-CAnswerDate RecordedQ1: How often do you have a [...] and heating?Not very hard06/29/2023HQ-2AnswerDate RecordedPatient Health Questionnaire-2 Hdehq014F[place] [facility] [place] of Occupational Health - Occupational Stress QuestionnaireAnswerDate RecordedDo you feel stress - tense, restless, nervous, or anxious, or unable to sleep at night because your mind is troubled all the time - these days?To some yxhnig0806/29/2023Exercise Vital SignAnswerDate RecordedOn average, how many days per week do you engage in moderate to strenuous exercise (like a brisk walk)?Patient jacykcyp76/15/2023On average, how many minutes do you engage in exercise at this level?Patient jdfzzakm68/15/2023Hunger Vital SignAnswerDate RecordedWithin the past 12 months, you worried that your food would run out before you got the money to buymore. Never true06/29/2023Within the past 12 months, the food you bought just didn't last and you didn't have money to get more.Never true3PRAPARE - TransportationAnswerDate RecordedIn the past 12 months, [...] in ashelter (including now)?No06/29/2023Estimated Date of Delivery BphjiwryVtt39/10/2025Based on UltrasoundSex and Gender InformationValueDate RecordedSex Assigned at LnczsFgrrds68/12/2023 9:46 AM EDTLegal SexFemale 10/27/2022 6:38 PM EDTGender OyyesxyvTwdiwv91/12/2023 9:46 AM EDTSexual OrientationChoose not to coeoiidp71/12/2023 9:46 AM EDTdocumented as of this encounter Plan of Treatment DateTypeDepartmentCare Team (Latest Contact Info)Yqrapjqwvfm23/17/2025 9:30 AM ESTRoutine [facility] [address] [place] [address] Maria T Montejo CNM [address] [place] [address] documented as of this encounter Goals GoalPatient Goal TypeAssociated ProblemsRecent ProgressPatient-Stated?Author Reminders Care PlanOB RemindersNoOpen Scheduling, Backgrounddocumented as of this encounter Visit Diagnoses Not on filedocumented in this encounter Additional Health Concerns Active ProblemsNoted DateDiagnosed DateOB Qzfezbszw28/03/2025 AssessmentNoted TimePHQ-9 Depression Total Score: 12009/22/2023 2:00 PM EST documented as of this encounter Care Teams Team MemberRelationshipSpecialtyStart DateEnd Date Marino Joseph MD [address] [place] [address] PCP - GeneralFamily Sfjbedji94/12/25documented as of this encounter
[2025-07-31 03:21] LABS: Glucose Urine UA NEGATIVE (NEGATIVE)
[2025-07-31 03:30] LABS: Cast Seen? NONE SEEN #/LPF (NONE SEEN); Crystals Seen? None Seen #/HPF (None Seen); Urine Culture Indicated YES-FRMC
[2025-07-31 03:44] LABS: Cannabinoid Screen Urine NEGATIVE (NEGATIVE); Methamphetamines Screen Urine NEGATIVE (NEGATIVE); Tricyclic Antidepressant Urine NEGATIVE (NEGATIVE)
[2025-07-31 04:12] LABS: Hematocrit 39.8 % (36.0-48.0); Hemoglobin 13.6 g/dL (12.0-16.0); Mean Corpuscular HGB Conc 34.2 g/dL (29.9-35.2); Mean Corpuscular Hemoglobin 30.8 pg (26.7-34.0); Mean Corpuscular Volume 90.2 fL (81.0-99.0); Platelet Count 433 10^3/uL (150-450); Red Blood Count 4.41 10^6/uL (4.20-5.40); White Blood Count 15.0 10^3/uL (4.0-11.0)
[2025-07-31] MEDS: ROPIVACAINE HCL/PF 400 MG/200 ML PREMIX 8 MG EPIDURAL (05:10)
[2025-07-31] MEDS: OXYTOCIN/0.9 % SODIUM CHLORIDE 10 UNITS/500 ML PLAST..BAG 6 UNIT IV (09:28)
[2025-07-31] MEDS: OXYTOCIN/0.9 % SODIUM CHLORIDE 20 UNITS/1,000 ML PLAST..BAG 125 UNIT IV (14:40)
--- NOTE | 2025-07-31 15:53 | P.OBHP_ITS ---
OB - H&P: HPI History of Present Illness Chief complaint: CONTRACTIONS : 1 Para: 0 Gestational age based on last menstrual period: 41.0 Comments: spontaneous labor History of Present care: good care Ultrasounds: normal mid trimester US complications comment: late transfer to [place], moved from [facility] Medical complications OB: none Labs Blood type: O (+) positive Rubella: nonimmune RPR/VDLR: nonreactive GBS status: negative HBsAG: negative Review of Systems ROS Status of ROS: 10 or more systems reviewed and unremarkable except as noted in history and below PFSH PFSH Surgical History (Updated 07/31/25 @ 03:56 by Trenton Lopez) H/O oral surgery ?Z98.890 - Other specified postprocedural states (ICD-10) Social History (Updated 07/31/25 @ 03:30 by Trenton Lopez) Within the past year, how often did you have a drink containing alcohol: never Within the past year, how often did you have six or more drinks on one occasion: never Score interpretation: A score less than 3 is consistent with normal alcohol consumption. Smoking status: Former smoker Non-prescribed substance use: denies use Highest level of school completed/degree received: Bachelor's degree In a typical week, how many times do you talk on the telephone with family, friends, or neighbors: 3 or more times per week How often do you get together with friends or relatives: 3 or more times per week How often do you attend samaritan or orthodoxy services: never Little interest or pleasure in doing things: not at all Feeling down, depressed, or hopeless: not at all Feel stressed/tense/nervous/anxious/difficulty sleeping: not at all Do you think of yourself as: straight/heterosexual Gender Identity: female Meds Home Medications and Allergies Allergies Allergy/AdvReac Type Severity Reaction Status Date / Time No Known Drug Allergies Allergy Verified 07/31/25 04:09 Exam Constitutional Vital Signs, click to edit/add: Last Vital Signs Temp 99 F 07/31/25 07:24 Pulse 120 H 07/31/25 15:42 BP 119/70 07/31/25 15:42 Documenting provider has reviewed patient's vital signs: yes Common normals: oriented x3 and no limitations General appearance: cooperative, comfortable, well kempt and well developed Orientation/consciousness: Yes awake, Yes oriented to person, Yes oriented to place and Yes oriented to time HENMT Common normals: normocephalic Head and scalp: normal to inspection and normocephalic Eye Common normals: EOMs intact bilaterally General eye: normal appearance of both eyes Neck & C-Spine Common normals: full ROM and no lymphadenopathy General: normal visual inspection Lymph Lymphatic: no lymphadenopathy noted Chest Common normals: inspection of chest normal Respiratory Common normals: normal respiratory effort, no retractions, no use of accessory muscles and clear to auscultation bilaterally Effort & inspection: able to speak in complete sentences Auscultation: clear to auscultation bilaterally Cardio Common normals: regular rate and regular rhythm Rate: regular rate Rhythm: regular rhythm GI Common normals: Normal to inspection, nondistended, normoactive bowel sounds present, soft to palpation and non-tender Inspection: normal to inspection Auscultation: normoactive bowel sounds Palpation: soft Percussion: normal to percussion Common normals: no CVA tenderness Back & Pelvis Common normals: no CVA tenderness Thoracic spine/upper back: normal to inspection Extremity Common normals: normal to inspection General: normal exam except as noted Neuro Common normals: oriented x3 Sensorium/orientation: awake, alert, oriented to person, oriented to place and oriented to time Monofilament exam performed: No Psych Common normals: mental status grossly normal, thought process normal, cooperative, affect normal, speech normal, activity/motor behavior normal, denies hallucinations, denies homicidal ideation and denies suicidal ideation Appearance: grossly normal and well kempt Attitude: calm Activity/motor behavior: appropriate eye contact Results Labs Labs: Short CBC 07/31/25 Range/Units 04:00 WBC 15.0 H (4.0-11.0) 10^3/uL Hgb 13.6 (12.0-16.0) g/dL Hct 39.8 (36.0-48.0) % Plt Count 433 (150-450) 10^3/uL Urine 07/31/25 Range/Units 02:27 Urine Color Lt. yellow (YELLOW) Urine Clarity Clear (CLEAR) Urine pH 6.0 (5.0-9.0) Ur Specific [place] 1.015 (1.005-1.025) Urine Protein Negative (NEG/TRACE) mg/dL Urine Glucose (UA) Negative (NEGATIVE) mg/dL OB - A/P Assessment and Plan (1) Term : (2) Post-dates : Qualifiers: Post-term type: 40-42 weeks gestation Qualified Code(s): O48.0 - Post-term Urinary Catheter Management Urinary Catheter Management Urethral: Cath placed during this visit: yes Urethral indwelling: No Insertion date: 07/31/25 Insertion time: 05:35
--- NOTE | 2025-07-31 16:11 | PM.OBPRCVD ---
Procedure Intrapartal events: None Induction method: none Delivery augmentation: rupture of membranes Delivery monitor: external FHT and external uterine Route of delivery: Episiotomy Description: none L&D Laceration Description: perineal - 1st degree and vaginal - 1st degree Delivery repair: Vicryl Estimated blood loss (mL): 400 Anesthesia type: Epidural Complications: shoulder dystocia- see note Narrative: mild shoulder dystocia noted with pushing, patient placed in Christine position with knees back toward nipples, suprapubic pressure one time and anterior shoulder able to be delivered. Cord clamped immediately and baby to warmer Delivery date: 07/31/25 Gender: male presentation: vertex Placental delivery description: Spontaneous cord description: 3 Vessels heart rate - 1 minute: 100 bpm or Greater respiratory effort - 1 minute: No Spontaneous Effort muscle tone - 1 minute: Limp reflex response - 1 minute: No Response color - 1 minute: Pallor or Cyanosis total score - 1 minute: 2 heart rate - 5 minute: 100 bpm or Greater respiratory effort - 5 minute: No Spontaneous Effort muscle tone - 5 minute: Minimal Flexion/Extension reflex response - 5 minute: No Response color - 5 minute: Bluish Hands or Feet total score - 5 minute: 4 heart rate - 10 minute: 100 bpm or Greater respiratory effort - 10 minute: Spontaneous/Strong Cry muscle tone - 10 minute: Minimal Flexion/Extension reflex response - 10 minute: Minimal Response color - 10 minute: Bluish Hands or Feet total score - 10 minute: 7
[2025-08-01] VITALS (7 sets, daily range): BP systolic 96–121; BP diastolic 54–73; PULSE 88–101; TEMP 36.6–37.7
[2025-08-01 06:25] LABS: Hematocrit 30.8 % (36.0-48.0); Hemoglobin 10.4 g/dL (12.0-16.0); Immature Granulocytes Abs Auto 0.10 10^3/uL (0.00-0.03); Immature Granulocytes Pct Auto 0.5 % (0.0-0.5); Lymphocytes Absolute Auto 3.1 10^3/uL (1.2-3.8); Mean Corpuscular HGB Conc 33.8 g/dL (29.9-35.2); Mean Corpuscular Hemoglobin 31.0 pg (26.7-34.0); Mean Corpuscular Volume 91.9 fL (81.0-99.0); Platelet Count 288 10^3/uL (150-450); Red Blood Count 3.35 10^6/uL (4.20-5.40); White Blood Count 20.9 10^3/uL (4.0-11.0)
[2025-08-01] MEDS: IBUPROFEN 400 MG TABLET 800 MG PO ×3 (07:04→23:29)
[2025-08-01] MEDS: DOCUSATE SODIUM 100 MG CAPSULE PO ×2 (08:24→22:25)
--- NOTE | 2025-08-01 08:40 | P.OBPN_ITS ---
OB - PN: Subj Subjective Patient comments: no complaints [place] status: doing well [place] feeding status: exclusively Exam Constitutional Vital Signs, click to edit/add: Last Vital Signs Temp 99.3 F 08/01/25 01:48 Pulse 88 08/01/25 08:23 BP 100/56 08/01/25 08:23 O2 Del Method Room Air 07/31/25 23:07 Documenting provider has reviewed patient's vital signs: yes Common normals: no apparent distress and oriented x3 General appearance: cooperative, comfortable, well kempt and well developed Orientation/consciousness: Yes awake, Yes oriented to person, Yes oriented to place and Yes oriented to time HENMT Common normals: normocephalic Head and scalp: normal to inspection Eye Common normals: EOMs intact bilaterally General eye: normal appearance of both eyes Neck & C-Spine Common normals: full ROM Lymph Lymphatic: no lymphadenopathy noted Respiratory Common normals: normal respiratory effort, no retractions, no use of accessory muscles and clear to auscultation bilaterally Effort & inspection: able to speak in complete sentences Auscultation: clear to auscultation bilaterally Cardio Common normals: regular rate and regular rhythm Rate: regular rate Rhythm: regular rhythm GI Common normals: Normal to inspection, nondistended, normoactive bowel sounds present Inspection: normal to inspection Auscultation: normoactive bowel sounds Palpation: soft Common normals: no CVA tenderness Extremity Common normals: normal to inspection Neuro Common normals: oriented x3 Sensorium/orientation: awake, alert, oriented to person, oriented to place and oriented to time Psych Common normals: mental status grossly normal, thought process normal, cooperative, affect normal, speech normal, activity/motor behavior normal, denies hallucinations, denies homicidal ideation and denies suicidal ideation Appearance: grossly normal Attitude: calm Speech: normal speech Thought process: normal thought process Thought content: normal thought content Results Labs Labs: Short CBC 08/01/25 Range/Units 06:13 WBC 20.9 H (4.0-11.0) 10^3/uL Hgb 10.4 L (12.0-16.0) g/dL Hct 30.8 L (36.0-48.0) % Plt Count 288 (150-450) 10^3/uL Urinary Catheter Management Urinary Catheter Management Urethral: Cath placed during this visit: yes Urethral indwelling: No Insertion date: 07/31/25 Insertion time: 05:35 OB - PN: A/P Assessment and Plan (1) Term : (2) Post-dates : Qualifiers: Post-term type: 40-42 weeks gestation Qualified Code(s): O48.0 - Post-term Plan - Vaginal Delivery day: 1 Plan: routine care Time Spent with Patient Time: Total time spent is greater than 50% in coordination of care (as documented) at patient's floor/unit and/or counseling patient: Total time spent with greater than 50% in coordination of care (as documented) at patient's floor/unit and/or counseling patient: less than 15 minutes
--- NOTE | 2025-08-01 19:28 | W.PC.ACHO ---
Registration Status: ADM IN Primary Language: Preferred Language: Maltese Report given to Pamella HERNANDEZ. Care relinquished at 1900. Active Medications Generic Name Dose Route Start Last Admin Trade Name April PRN Reason Stop Dose Admin Acetaminophen 650 mg 07/31/25 16:10 Acetaminophen 325 Mg Tablet PO Q6H PRN Mild Pain Al Hydroxide/Mg Hydroxide 2,400 mg 07/31/25 16:10 Magnesium Hydroxide 2,400 Mg/10 Ml Oral.Susp PO Q6H PRN Dyspepsia Benzocaine/Menthol 1 applic 07/31/25 16:10 Benzocaine/Menthol 85 Gram Dorr Bottle TOPICAL Q2H PRN Pain Docusate Sodium 100 mg 08/01/25 09:00 08/01/25 08:24 Docusate Sodium 100 Mg Capsule PO 100 mg BID ELLIOTT Administration Ibuprofen 800 mg 07/31/25 17:00 08/01/25 15:23 Ibuprofen 400 Mg Tablet PO 800 mg Q8H ELLIOTT Administration Ondansetron HCl 4 mg 07/31/25 03:23 Ondansetron Pf 4 Mg/2 Ml Vial IV Q6H PRN Nausea And Vomiting Ondansetron HCl 4 mg 07/31/25 03:23 Ondansetron 4 Mg Rapdis Tablet SL Q6H PRN Nausea And Vomiting Senna 17.2 mg 07/31/25 20:00 Sennosides 8.6 Mg Tablet PO QHS PRN Constipation Simethicone 80 mg 07/31/25 16:10 Simethicone 80 Mg Tab.Chew PO QID PRN Abdominal Distention Temazepam 15 mg 07/31/25 16:10 Temazepam 15 Mg Capsule PO QHS PRN Sleep Witch Radhika/Glycerin 1 pad 07/31/25 16:10 Glycerin/Witch Radhika Pads TOPICAL Q2H PRN Pain Respiratory Oxygen Delivery Method Room Air Oxygen Delivery Method Room Air Oxygen Delivery Method Room Air Cardiology Heart Sounds Regular,Strong Heart Sounds Regular,Strong Renal Bladder Pattern Continent Bladder Pattern Continent Catheter Urinary Catheter Date of 07/31/25 Insertion [Urethral] Urinary Catheter Time of 05:35 Insertion [Urethral]
--- NOTE | 2025-08-02 07:44 | PM.OBPN ---
OB - PN: Subj Subjective Patient comments: no complaints and pain well controlled [place] status: doing well Exam Constitutional Vital Signs, click to edit/add: Last Vital Signs Temp 97.9 F 08/01/25 23:30 Pulse 99 H 08/01/25 23:30 Resp 16 08/01/25 23:30 BP 96/54 08/01/25 23:30 O2 Del Method Room Air 08/01/25 23:30 Documenting provider has reviewed patient's vital signs: yes Common normals: no apparent distress Respiratory Common normals: normal respiratory effort and clear to auscultation bilaterally Cardio Common normals: regular rate and regular rhythm GI Common normals: Normal to inspection, nondistended, normoactive bowel sounds present Extremity Common normals: normal to inspection, no clubbing, cyanosis or edema and no calf tenderness Urinary Catheter Management Urinary Catheter Management Urethral: Cath placed during this visit: yes Urethral indwelling: No Insertion date: 07/31/25 Insertion time: 05:35 OB - PN: A/P Assessment and Plan (1) Term : (2) Post-dates : Qualifiers: Post-term type: 40-42 weeks gestation Qualified Code(s): O48.0 - Post-term Plan - Vaginal Delivery day: 2 Plan: routine care, discharge home and follow up 6 weeks Time Spent with Patient Time: Total time spent is greater than 50% in coordination of care (as documented) at patient's floor/unit and/or counseling patient: Total time spent with greater than 50% in coordination of care (as documented) at patient's floor/unit and/or counseling patient: less than 15 minutes
[2025-08-02 08:20] VITALS: BP 114/58; PULSE 82; TEMP 36.7
[2025-08-02 08:22] VITALS: BP 114/58; PULSE 82
[2025-08-02] MEDS: DOCUSATE SODIUM 100 MG CAPSULE PO (08:28)
[2025-08-02] MEDS: IBUPROFEN 400 MG TABLET 800 MG PO (08:29)
[2025-08-02] MEDS: MEASLES,MUMPS,RUBELLA VACC/PF 0.5 ML VIAL SQ (15:51)
== END 2025-08-02 16:20 | disposition home or self-care (01) | DRG 560 ==
LOC: LAB 07:48 → FBC 07:48
PROVIDERS: Admitting Provider Midwife; PCP Family Medicine; Visit Provider Midwife
DX: O48.0 Post-term pregnancy (principal); Z3A.41 41 weeks gestation of pregnancy; O70.0 First degree perineal laceration during delivery; Z37.0 Single live birth; O66.0 Obstructed labor due to shoulder dystocia; Z87.891 Personal history of nicotine dependence
CPT/HCPCS: 36415; 51701; 51702; 59025; 59050; 59410; 76818; 80307; 81001; 84112; 85025; 85027; 86850; 86900; 86901; 87086; 90707; J2795

== ENCOUNTER 2025-08-06 08:12 | Outpatient (OUT) | payer OTHER, SELFPAY ==
--- OUTSIDE RECORDS SUMMARY | 2025-07-30 15:15 | XMS_ITS | Encounter Summary ---
Author Organization [facility] Address [address] [place] [address] Care Team Providers Care Linen Controller Name Role Phone Marino Joseph MD Primary Care Provider Encounter Details DateTypeDepartmentCare Team (Latest Contact Info)Bffjogxxuaa37/16/2025 3:15 PM ESTAncillary Procedure [facility] [address] [place] [address] Post-term , 40-42 weeks of gestation ([facility]) Social History Tobacco UseTypesPacks/DayYears UsedDateSmoking Tobacco: NeverPassive [...] a week 06/29/2023How often do you attend evangelical or christian services?Patient declined 06/29/2023o you belong to any clubs or organizations such as evangelical groups, unions, fraAvista or athletic groups, or school groups?No06/29/2023How often do you attend meetings of the clubs or organizations you belong to?Patient declined 06/29/2023re you , , , , never , or living with a partner?Patient twqbmcre69/15/2023UDIT-CAnswerDate RecordedQ1: How often do you have a [...] and heating?Not very hard06/29/2023HQ-2AnswerDate RecordedPatient Health Questionnaire-2 Lfukj375[facility] [place] of Occupational Health - Occupational Stress QuestionnaireAnswerDate RecordedDo you feel stress - tense, restless, nervous, or anxious, or unable to sleep at night because your mind is troubled all the time - these days?To some jnzidu9606/29/2023Exercise Vital SignAnswerDate RecordedOn average, how many days per week do you engage in moderate to strenuous exercise (like a brisk walk)?Patient zrxwvtip44/15/2023On average, how many minutes do you engage in exercise at this level?Patient dqibashp49/15/2023Hunger Vital SignAnswerDate RecordedWithin the past 12 months, [...] steady place to sleep or slept in [place] (including now)?No06/29/2023Estimated Date of Delivery NxskmwlbQcf65/10/2025Based on UltrasoundSex and Gender InformationValueDate RecordedSex Assigned at MhqbtAxkidj07/12/2023 9:46 AM EDTLegal SexFemale 10/27/2022 6:38 PM EDTGender RfkkqkqpZvzokr46/12/2023 9:46 AM EDTSexual OrientationChoose not to fkpmltea55/12/2023 9:46 AM EDTdocumented as of this encounter Plan of Treatment DateTypeDepartmentCare Team (Latest Contact Info)Mbwpoqxjysp60/30/2025 11:00 AM ESTTelemedicine [facility] [address] [place] [address] Maria T Montejo CNM [address] [place] [address] documented as of this encounter Goals GoalPatient Goal TypeAssociated ProblemsRecent ProgressPatient-Stated?Author Reminders Care PlanOB RemindersNoOpen Scheduling, Backgrounddocumented as of this encounter Procedures Procedure NamePriorityDate/TimeAssociated DiagnosisCommentsUS OB FOLLOW UP TRANSABDOMINAL IBWNIXCLMilokmj79/16/2025 3:42 PM EST Post-term , 40-42 weeks of gestation ([facility]) documented in this encounter Results * US OB follow up transabdominal approach (07/30/2025 3:42 PM EST)Anatomical RegionLateralityModalityBodyUltrasoundSpecimen (Source)Anatomical Location / LateralityCollection Method / VolumeCollection TimeReceived Time08/02/2025 11:40 AM EST Impressions 08/02/2025 11:43 AM EST SINGLE LIVE INTRAUTERINE CORRESPONDING TO APPROXIMATELY 36 weeks 3 days, +/-3 weeks. NO GROSS ABNORMALITY IDENTIFIED, WITHIN THE LIMITS OF THE STUDY. ELECTRONICALLY SIGNED BY: Ambrocio Lang MD Narrative 08/02/2025 11:43 AM EST EXAM: US OB FOLLOW UP TRANSABDOMINAL APPROACH DATE: 07/30/2025 3:42 PM COMPARISON: None available. Transabdominal ultrasound of the gravid uterus was performed. FINDINGS: A single live intrauterine is noted in cephalic position. cardiac activity is measured at 158 bpm. The cervix appears closed measuring approximately 1.8 cm in longitudinal length. A grade 2-appearing placenta is posterior without evidence of placenta previa. The amniotic fluid index measures 13.8 cm measured in 4 quadrants, which is within normal limits for gestation. 66 th percentile MEASUREMENTS: BPD 8.5 cm, ??HC 30.8 cm, FL 7.1 cm, AC 36.5 cm, which corresponds to 36 weeks 3 days, +/-3 weeks. ESTIMATED WEIGHT: 3391 g (7 lbs. 8 oz.) No gross anatomic abnormalities are identified, within limits of the advanced gestational age. Procedure Note Ambrocio Lang MD - 08/02/2025 EXAM: US OB FOLLOW UP TRANSABDOMINAL APPROACH DATE: 07/30/2025 3:42 PM COMPARISON: None available. Transabdominal ultrasound of the gravid uterus was performed. FINDINGS: A single live intrauterine is noted in cephalic position. cardiac activity is measured at 158 bpm. The cervix appears closed measuring approximately 1.8 cm in longitudinallength. A grade 2-appearing placenta is posterior without evidence of placentaprevia. The amniotic fluid index measures 13.8 cm measured in 4 quadrants, whichis within normal limits for gestation. 66 th percentile MEASUREMENTS: BPD 8.5 cm, HC 30.8 cm, FL 7.1 cm, AC 36.5 cm, whichcorresponds to 36 weeks 3 days, +/-3 weeks. ESTIMATED WEIGHT: 3391 g (7 lbs. 8 oz.) No gross anatomic abnormalities are identified, within limits of the advanced gestational age. IMPRESSION: SINGLE LIVE INTRAUTERINE CORRESPONDING TO APPROXIMATELY 36 weeks3 days, +/-3 weeks. NO GROSS ABNORMALITY IDENTIFIED, WITHIN THE LIMITS OF THE STUDY. ELECTRONICALLY SIGNED BY: Ambrocio Lang MD Authorizing ProviderResult TypeResult StatusValerie Eduard Montejo [facility] US PROCEDURESFinal Result documented in this encounter Visit Diagnoses Diagnosis Post-term , 40-42 weeks of gestation ([facility]) documented in this encounter Additional Health Concerns Active ProblemsNoted DateDiagnosed DateOB Pwbytiyva03/03/2025 AssessmentNoted TimePHQ-9 Depression Total Score: 12009/22/2023 2:00 PM EST documented as of this encounter Care Teams Team MemberRelationshipSpecialtyStart DateEnd Date Marino Joseph MD [address] [place] [address] PCP - GeneralFamily Ypogvado12/12/25documented as of this encounter
--- OUTSIDE RECORDS SUMMARY | 2025-08-06 08:17 | XMS_ITS | Encounter Summary ---
Author Organization [facility] Address [address] [place] [address] Care Team Providers Care Surveillance Supervisor Name Role Phone Marino Joseph MD Primary Care Provider [phone] Encounter Details DateTypeDepartmentCare Team (Latest Contact Info)Pvuxcswyeed17/12/2025Clinisync Result Encounter [facility] External Department Unsolicited Rolando Montejo, CNM [address] [place] [id number] Social History Tobacco UseTypesPacks/DayYears UsedDateSmoking Tobacco: NeverPassive [...] a week 06/29/2023How often do you attend taoism or roman catholic services?Patient declined 06/29/2023o you belong to any clubs or organizations such as taoism groups, unions, fraBountyJobs or athletic groups, or school groups?No06/29/2023How often do you attend meetings of the clubs or organizations you belong to?Patient declined 06/29/2023re you , , , , never , or living with a partner?Patient cemeqgxu70/15/2023UDIT-CAnswerDate RecordedQ1: How often do you have a [...] and heating?Not very hard06/29/2023HQ-2AnswerDate RecordedPatient Health Questionnaire-2 Wryoj867[facility] [place] of Occupational Health - Occupational Stress QuestionnaireAnswerDate RecordedDo you feel stress - tense, restless, nervous, or anxious, or unable to sleep at night because your mind is troubled all the time - these days?To some erjesy5006/29/2023Exercise Vital SignAnswerDate RecordedOn average, how many days per week do you engage in moderate to strenuous exercise (like a brisk walk)?Patient zhsfieck89/15/2023On average, how many minutes do you engage in exercise at this level?Patient kcurjiyo18/15/2023Hunger Vital SignAnswerDate RecordedWithin the past 12 months, [...] steady place to sleep or slept in searcyelter (including now)?No06/29/2023Estimated Date of Delivery RxdcxtbuRyy56/10/2025Based on UltrasoundSex and Gender InformationValueDate RecordedSex Assigned at HjgioEqupas24/12/2023 9:46 AM EDTLegal SexFemale 10/27/2022 6:38 PM EDTGender WzkoiwadKcdmtv43/12/2023 9:46 AM EDTSexual OrientationChoose not to jlwhsyoo68/12/2023 9:46 AM EDTdocumented as of this encounter Plan of Treatment DateTypeDepartmentCare Team (Latest Contact Info)Nqhrfjsnske78/30/2025 11:00 AM ESTTelemedicine [facility] [address] [place] [address] Rolando Montejo, EVY [address] [place] [address] documented as of this encounter Goals GoalPatient Goal TypeAssociated ProblemsRecent ProgressPatient-Stated?Author Reminders Care PlanOB RemindersNoOpen Scheduling, Backgrounddocumented as of this encounter Procedures Procedure NamePriorityDate/TimeAssociated DiagnosisCommentsUS OB BPP W NON-UXBGKP0107/26/2025 4:50 PM EST documented in this encounter Results * US OB BPP W NON-STRESS (07/26/2025 4:50 PM EST)Anatomical Region LateralityModalityOtherSpecimen (Source)Anatomical Location / Laterality Collection Method / VolumeCollection TimeReceived Time07/26/2025 4:50 PM EST Narrative 07/26/2025 4:53 PM EST [facility] ?[address] ? [place] [address] ? Ultrasound Report ? Signed ? Patient: JOSE L CHANG ?MR#: [id number] ?? : 2000 ?Acct:[id number] ?? Age/Sex: 24 / F ?ADM Date: 07/26/25 ?? Loc: US ? Attending Dr: ROLANDO MONTEJO APRN, CNM ? Ordering Physician: ROLANDO MONTEJO APRN, CNM ?? Date of Service: 07/26/25 ?? Procedure(s): US OB BPP w non-stress ?? Accession Number(s): [id number] ? cc: ROLANDO MONTEJO APRN, CNM; MARINO JOSEPH M.D. ? [facility] ? [address] ? [place] [address] ? Patient Name: ?? JOSE L CHANG ? MRN: [facility]:[id number] ? date: 2000 ?Sex: F ?? Assigned Patient Location: US ?? Current Patient Location: ? Accession/Order Number: [id number] ?? Exam Date: 07/26/2025 ??13:55 ?Report Date: 07/26/2025 ??16:50 ? At the request of: ?? ROLANDO ??JAKUB ??HUMERA CNDaniel ? Procedure: ??US OB BPP w non-stress [...] non-stress ?? IMPRESSION: ? Biophysical profile score: 8/8 ? Impression dictated by: Tr Theodore M.D. ??07/26/2025 4:50 PM ? Dictation Location: RADIO-PC-23 ? Electronically authenticated by: [id number] ??Y ?? Date: 07/26/2025 ??16:50 ? Dictated By: ?Tr Theodore M.D. ? Signed By: ?07/26/251652 ? DD/ 1650 ? TD/TT: ? Targeting Acquisition Officer: Procedure Note Radiology, Radiologist, - 07/26/2025 [place] [address] Ultrasound Report Signed Patient: JOSE L CHANG MMR#: [id number] : 2000Acct:[id number] Age/Sex: 24 / FADM Date: 07/26/25 Loc: US Attending Dr: ROLANDO MONTEJO APRN, CNM Ordering Physician: ROLANDO MONTEJO APRN, CNM Date of Service: 07/26/25 Procedure(s): US OB BPP w non-stress Accession Number(s): [id number] cc: ROLANDO MONTEJO APRN, CNM; MARINO JOSEPH M.D. The [address] [address] Patient Name: JOSE L CHANG MRN: [id number] date: 2000 Sex: F Assigned Patient Location: [place] Current Patient Location: Accession/Order Number: [id number] Exam Date: 07/26/2025 13:55 Report Date: 07/26/2025 [...] Theodore M.D. 07/26/2025 4:50 PM Dictation Location: [place] [address] Electronically authenticated by: [id number] Y Date: 6:50 Dictated By: Tr Theodore M.D. Signed By:07/26/251652 DD/ 49 TD/TT: Targeting Acquisition Officer: Authorizing ProviderResult TypeResult StatusValerie Eduard BeckSurgical Specialty Center at Coordinated HealthLINISYAK IMAGING Edited Result - Final documented in this encounter Visit Diagnoses Not on filedocumented in this encounter Additional Health Concerns Active ProblemsNoted DateDiagnosed DateOB Exricukcg15/03/2025 AssessmentNoted TimePHQ-9 Depression Total Score: 12009/22/2023 2:00 PM EST documented as of this encounter Care Teams Team MemberRelationshipSpecialtyStart DateEnd Date Marino Joseph MD [address] [place] [address] PCP - GeneralFamily Prplhecx17/12/25documented as of this encounter
--- OUTSIDE RECORDS SUMMARY | 2025-08-06 08:17 | XMS_ITS | Encounter Summary ---
Author Organization [facility] Address [address] [place] [address] Care Team Providers Care Engineering Professionals Name Role Phone Marino Joseph MD Primary Care Provider [phone] Encounter Details DateTypeDepartmentCare Team (Latest Contact Info)Cembgtxwkgj88/17/2025External Result Encounter [facility] External Department Unsolicited Maria T Montejo, CNM [address] [place] [id number] Social History Tobacco UseTypesPacks/DayYears UsedDateSmoking Tobacco: NeverPassive [...] a week 06/29/2023How often do you attend hinduism or mosque services?Patient declined 06/29/2023o you belong to any clubs or organizations such as hinduism groups, unions, fraJell Networks, LLC or athletic groups, or school groups?No06/29/2023How often do you attend meetings of the clubs or organizations you belong to?Patient declined 06/29/2023re you , , , , never , or living with a partner?Patient gtvxjrvo29/15/2023UDIT-CAnswerDate RecordedQ1: How often do you have a [...] and heating?Not very hard06/29/2023HQ-2AnswerDate RecordedPatient Health Questionnaire-2 Rymmm333Fincentral [facility] medical center [place] of Occupational Health - Occupational Stress QuestionnaireAnswerDate RecordedDo you feel stress - tense, restless, nervous, or anxious, or unable to sleep at night because your mind is troubled all the time - these days?To some trptxs4806/29/2023Exercise Vital SignAnswerDate RecordedOn average, how many days per week do you engage in moderate to strenuous exercise (like a brisk walk)?Patient mbpfkmec58/15/2023On average, how many minutes do you engage in exercise at this level?Patient ymehwzkg93/15/2023Hunger Vital SignAnswerDate RecordedWithin the past 12 months, [...] steady place to sleep or slept in [place] (including now)?No06/29/2023Estimated Date of Delivery XjdhagkpNjg15/10/2025Based on UltrasoundSex and Gender InformationValueDate RecordedSex Assigned at WenzoSdskzx00/12/2023 9:46 AM EDTLegal SexFemale 10/27/2022 6:38 PM EDTGender UsduthrnYhgffw26/12/2023 9:46 AM EDTSexual OrientationChoose not to snyampbl26/12/2023 9:46 AM EDTdocumented as of this encounter Plan of Treatment DateTypeDepartmentCare Team (Latest Contact Info)Sdhdjzpatez77/30/2025 11:00 AM ESTTelemedicine [facility] [address] [place] [address] Maria T Montejo, VEY [address] [place] [address] documented as of this encounter Goals GoalPatient Goal TypeAssociated ProblemsRecent ProgressPatient-Stated?Author Reminders Care PlanOB RemindersNoOpen Scheduling, Backgrounddocumented as of this encounter Procedures Procedure NamePriorityDate/TimeAssociated DiagnosisCommentsCULTURE, URINE, FXAZTGTOwjuwku35/17/2025 2:27 AM EST documented in this encounter Results * Urine culture (07/31/2025 2:27 AM EST)ComponentValueRef RangeTest Method Analysis TimePerformed AtPathologist SignatureMERCY HOSPITAL [facility] NOTE >100,000 colonies/ml mixed ? bacterial skin contaminants ? 2 Days 08/02/2025 9:59 AM ESTLicking Memorial Hospital CtrSpecimen (Source)Anatomical Location / LateralityCollection Method / VolumeCollection TimeReceived TimeUrine Urine specimen obtained by clean catch procedure / Xpgxoik1607/31/2025 2:27 AM EST 07/31/2025 2:52 PM ESTComment:Clean-Voided [facility] 08/02/2025 9:59 AM EST Diagnosis: Contractions Comment: Authorizing ProviderResult TypeResult StatusValeriraven Montejo CNMLAB MICROBIOLOGY - GENERAL ORDERABLESFinal ResultPerforming OrganizationAddressCity/State/ZIP CodePhone Number [facility] [address] [place] [address], [facility] [address] [place] [address] documented in this encounter Visit Diagnoses Not on filedocumented in this encounter Additional Health Concerns Active ProblemsNoted DateDiagnosed DateOB Axypxrvni16/03/2025 AssessmentNoted TimePHQ-9 Depression Total Score: 12009/22/2023 2:00 PM EST documented as of this encounter Care Teams Team MemberRelationshipSpecialtyStart DateEnd Date Marino Joseph MD [address] [place] [address] PCP - GeneralFamily Ummbpxay34/12/25documented as of this encounter
--- OUTSIDE RECORDS SUMMARY | 2025-08-06 08:17 | XMS_ITS | Encounter Summary ---
Author Organization [facility] Address [address] [place] [address] Care Team Providers Care Rolled Gold Plater Name Role Phone Marino Joseph MD Primary Care Provider [phone] Encounter Details DateTypeDepartmentCare Team (Latest Contact Info)Cyugqhcwcwo98/12/2025Orders Only [facility] OBGYN [address] [place] [phone] Maria T Montejo, TSERING [address] [place], [place] [id number] Post-term , 40-42 weeks of gestation ([facility]) Social History Tobacco UseTypesPacks/DayYears UsedDateSmoking Tobacco: [...] a week 06/29/2023How often do you attend temple or hindu services?Patient declined 06/29/2023o you belong to any clubs or organizations such as temple groups, unions, fraFoundationDB or athletic groups, or school groups?No06/29/2023How often do you attend meetings of the clubs or organizations you belong to?Patient declined 06/29/2023re you , , , , never , or living with a partner?Patient pgvqopps76/15/2023UDIT-CAnswerDate RecordedQ1: How often do you have a [...] and heating?Not very hard06/29/2023HQ-2AnswerDate RecordedPatient Health Questionnaire-2 Ftvco931Finsteward [facility] care system [place] of Occupational Health - Occupational Stress QuestionnaireAnswerDate RecordedDo you feel stress - tense, restless, nervous, or anxious, or unable to sleep at night because your mind is troubled all the time - these days?To some fawnjb6706/29/2023Exercise Vital SignAnswerDate RecordedOn average, how many days per week do you engage in moderate to strenuous exercise (like a brisk walk)?Patient exzcopob68/15/2023On average, how many minutes do you engage [...] steady place to sleep or slept in [place] (including now)?No06/29/2023Estimated Date of Delivery BvgsdjpbGqx05/10/2025Based on UltrasoundSex and Gender InformationValueDate RecordedSex Assigned at WnndoBjgehs10/12/2023 9:46 AM EDTLegal SexFemale 10/27/2022 6:38 PM EDTGender AwafkzjqEqumvo49/12/2023 9:46 AM EDTSexual OrientationChoose not to hggunkch84/12/2023 9:46 AM EDTdocumented as of this encounter Miscellaneous Notes * Addendum Note - Arianne Olivas MA - 07/26/2025 9:22 AM ESTAddended by: ARIANNE OLIVAS on: 07/26/2025 09:59 AM Modules accepted: Orders documented in this encounter Plan of Treatment DateTypeDepartmentCare Team (Latest Contact Info)Divpczieeab08/30/2025 11:00 AM ESTTelemedicine [facility] OB[facility]ENDA [address] [place] [address] Maria T Montejo CNM [address] [place] [address] NameTypePriorityAssociated DiagnosesOrder ScheduleUS biophysical profile w non stress testImagingRoutine Post-term , 40-42 weeks of gestation ([facility]) Expected: 07/26/2025, Expires: 07/26/2026US biophysical profile w non stress testImagingRoutine Post-term , 40-42 weeks of gestation ([facility]) Expected: 07/29/2025, Expires: 07/26/2026documented as of this encounter Goals GoalPatient Goal TypeAssociated ProblemsRecent ProgressPatient-Stated?Author Reminders Care PlanOB RemindersNoOpen Scheduling, Backgrounddocumented as of this encounter Visit Diagnoses Diagnosis Post-term , 40-42 weeks of gestation ([facility]) documented in this encounter Additional Health Concerns Active ProblemsNoted DateDiagnosed DateOB Pgsbfzxyy81/03/2025 AssessmentNoted TimePHQ-9 Depression Total Score: 12009/22/2023 2:00 PM EST documented as of this encounter Care Teams Team MemberRelationshipSpecialtyStart DateEnd Marino Joseph MD [address] [place] [address] PCP - GeneralFamily Abtxthml53/12/25documented as of this encounter
--- OUTSIDE RECORDS SUMMARY | 2025-08-06 08:17 | XMS_ITS | Encounter Summary ---
Author Organization [facility] Address [address] [place] [address] Care Team Providers Care Workshop Manager Name Role Phone Marino Joseph MD Primary Care Provider [phone] Encounter Details DateTypeDepartmentCare Team (Latest Contact Info)Gcxqjstgzve91/17/2025Clinisync Result Encounter [facility] External Department Unsolicited Maria T Montejo, CNM [address] [place] [id number] Social History Tobacco UseTypesPacks/DayYears UsedDateSmoking Tobacco: NeverPassive [...] a week 06/29/2023How often do you attend gnosticist or christian services?Patient declined 06/29/2023o you belong to any clubs or organizations such as gnosticist groups, unions, fraMyvu Corporation or athletic groups, or school groups?No06/29/2023How often do you attend meetings of the clubs or organizations you belong to?Patient declined 06/29/2023re you , , , , never , or living with a partner?Patient lmaquqkz10/15/2023UDIT-CAnswerDate RecordedQ1: How often do you have a [...] and heating?Not very hard06/29/2023HQ-2AnswerDate RecordedPatient Health Questionnaire-2 Pbnyn993Fincentral valley medical center [place] of Occupational Health - Occupational Stress QuestionnaireAnswerDate RecordedDo you feel stress - tense, restless, nervous, or anxious, or unable to sleep at night because your mind is troubled all the time - these days?To some azctrp6506/29/2023Exercise Vital SignAnswerDate RecordedOn average, how many days [...] steady place to sleep or slept in [place] (including now)?No06/29/2023Estimated Date of Delivery KumapfllClp30/10/2025Based on UltrasoundSex and Gender InformationValueDate RecordedSex Assigned at YxkutKdyzik77/12/2023 9:46 AM EDTLegal SexFemale 10/27/2022 6:38 PM EDTGender YxndanpjXymrix54/12/2023 9:46 AM EDTSexual OrientationChoose not to /12/2023 9:46 AM EDTdocumented as of this encounter Plan of Treatment DateTypeDepartmentCare Team (Latest Contact Info)Dsbktlttfwg53/30/2025 11:00 AM ESTTelemedicine [facility] [address] [place] [address] Maria T Montejo, EVY [address] [place] [address] documented as of this encounter Goals GoalPatient Goal TypeAssociated ProblemsRecent ProgressPatient-Stated?Author Reminders Care PlanOB RemindersNoOpen Scheduling, Backgrounddocumented as of this encounter Procedures Procedure NamePriorityDate/TimeAssociated DiagnosisCommentsH[facility] CBC WITH PLATELET NO BBPRZQDRVWEYLrbtfeq07/17/2025 4:00 AM EST ALL TYPE AND JWFERPErqnxsf30/17/2025 4:00 AM EST URINE CULTURE - QNKRSjodnfr28/17/2025 2:27 AM EST [facility] UA (CLEAN/CATCH) COMMERCIAL COORDINATOR/MICRO IF IND.Hxtnomi3807/31/2025 2:27 AM EST TB DRUG SCREEN RAPID (URINE)Ptqqxbe4107/31/2025 2:27 AM EST documented in this encounter Results * ALL TYPE AND SCREEN (07/31/2025 4:00 AM EST)ComponentValueRef RangeTest Method Analysis TimePerformed AtPathologist SignatureBLOOD TYPEO PositiveTBHANTIBODY SCREENNEGATIVETBHSpecimen (Source)Anatomical Location / LateralityCollection Method / VolumeCollection TimeReceived Time07/31/2025 4:00 AM EST07/31/2025 4:10 AM EST Narrative CLINISYNC - 07/31/2025 4:[address] [facility] , ?? Authorizing ProviderResult TypeResult StatusValerie Eduard Montejo [facility] HOSPITALLINISYNCFinal ResultPerforming OrganizationAddressCity/State/ZIP CodePhone Number CLINISYNC TB * (ABNORMAL) [facility] CBC WITH PLATELET NO DIFFERENTIAL (07/31/2025 4:00 AM EST) ComponentValueRef RangeTest MethodAnalysis TimePerformed AtPathologist SignatureTBH WBC15.0(H)4.0 - 11.0 10 3/uLTBHTBH RBC4.414.20 - 5.40 10 6/uLTBH TBH HGB13.612.0 - 16.0 g/dLTBHTBH HCT39.836.0 - 48.0 %TBHTBH MCV90.281.0 - 99.0 fLTBHTBH MCH30.826.7 - 34.0 pgTBHTBH MCHC34.229.9 - 35.2 g/dLTBHTBH RDW 14.011.0 - 15.0 %TBHT EKG430093 - 450 10 3/uLTBHT MPV9.79.5 - 13.5 fLTBH Specimen (Source)Anatomical Location / LateralityCollection Method / Volume Collection TimeReceived Time07/31/2025 4:00 AM EST07/31/2025 4:10 AM EST Narrative CLINISYNC - 07/31/2025 4:13 AM EST Authorizing ProviderResult TypeResult StatusElizavilleramses Montejo [facility]OS[facility]ITALLINISYNCFinal ResultPerforming OrganizationAddressCity/State/ZIP CodePhone Number [facility]YAT[facility] * [facility] DRUG SCREEN RAPID (URINE) (07/31/2025 2:27 AM EST)ComponentValueRef Range Test MethodAnalysis TimePerformed AtPathologist SignatureCANNABINOID SCREEN URINENEGATIVENEGATIVETBHPHENCYCLIDINE SCREEN URINENEGATIVENEGATIVETBHCOCAINE SCREEN URINENEGATIVENEGATIVETBHMETHAMPHETAMINES SCREEN URINENEGATIVENEGATIVE TBHOPIATE SCREEN URINENEGATIVENEGATIVETBHAMPHETAMINE SCREEN URINENEGATIVE NEGATIVETBHBENZODIAZEPINES SCREEN URINENEGATIVENEGATIVETBHTRICYCLIC ANTIDEPRESSANT URINENEGATIVENEGATIVETBHMETHADONE SCREEN URINENEGATIVENEGATIVE TBHBARBITURATES SCREEN URINENEGATIVENEGATIVETBHOXYCODONE SCREEN URINENEGATIVE NEGATIVETBHBUPRENORPHINE SCREEN URINENEGATIVENEGATIVETBHComment: DRUG CLASS TEST SYSTEM CUT-OFF CONCENTRATIONS ARE FOLLOWS: AMP (Amphetamine): 500 ng/mL BAR (Barbiturates): 200 ng/mL BZO (Benzodiazepines): 150 ng/mL BUP (Buprenorphine): 10 ng/mL ABHISHEK (Cocaine): 150 ng/mL mAMP (Methamphetamine): 500 ng/mL MTD (Methadone): 200 ng/mL OPI (Opiates): 100 ng/mL OXY (Oxycodone): 100 ng/mL PCP (Phencyclidine): 25 ng/mL THC (Cannabinoids): 50 ng/mL TCA (Trycyclic Antidepressants): 300 ng/mL Specimen (Source)Anatomical Location / LateralityCollection Method / Volume Collection TimeReceived Time07/31/2025 2:27 AM EST07/31/2025 3:36 AM EST Narrative CLINISYNC - 07/31/2025 3:44 AM EST Authorizing ProviderResult TypeResult StatusValeriraven CAGLELINISYNCFinal ResultPerforming OrganizationAddressCity/State/ZIP CodePhone Number [facility] * URINE CULTURE - FR (07/31/2025 2:27 AM EST)ComponentValueRef RangeTest MethodAnalysis TimePerformed AtPathologist SignatureURINE CULTURE - FR ??Urine Culture - [facility] SEEFRMC [facility] RESULT^[facility] RESULT TBHURINE CULTURE - FRMCSEEN SEE SCANNED REPORT, NORMAL^SEE SCANNED REPORT, NORMALTBHSpecimen (Source)Anatomical Location / LateralityCollection Method / VolumeCollection TimeReceived Time07/31/2025 2:27 AM EST07/31/2025 3:19 AM EST Narrative CLINISYOH - 08/02/2025 3:02 PM EST Authorizing ProviderResult TypeResult StatusValeriraven Montejo CNMLAB BLOOD ORDERABLESFinal ResultPerforming OrganizationAddressCity/State/ZIP CodePhone Number [facility] * (ABNORMAL) [facility] UA (CLEAN/CATCH) COMMERCIAL COORDINATOR/MICRO IF IND. (07/31/2025 2:27 AM EST) ComponentValueRef RangeTest MethodAnalysis TimePerformed AtPathologist SignatureCOLOR URINELT. YELLOWYELLOWTBHCLARITY URINECLEARCLEARTBHSPECIFIC GRAVITY URINE1.0151.005 - 1.025TBHPH URINE6.05.0 - 9.0TBHPROTEIN URINENEGATIVE NEG/TRACE mg/dLTBHGLUCOSE URINE UANEGATIVENEGATIVE mg/dLTBHBILIRUBIN URINE NEGATIVENEGATIVETBHKETONES URINETRACE(A)NEGATIVE mg/dLTBHBLOOD URINELARGE(A) NEGATIVETBHNITRITE URINENEGATIVENEGATIVETBHUROBILINOGEN URINE0.20.2 - 1.0 EU/dLTBHLEUKOCYTE ESTERASE URINESMALL(A)NEGATIVETBHURINE MICROSCOPIC INDICATED YESTBHSpecimen (Source)Anatomical Location / LateralityCollection Method / VolumeCollection TimeReceived Time07/31/2025 2:27 AM EST07/31/2025 3:19 AM EST Narrative CLINISYNC - 07/31/2025 3:24 AM EST Authorizing ProviderResult TypeResult StatusValerie Eduard Montejo [facility]ITALLINISYNCFinal ResultPerforming OrganizationAddressCity/State/ZIP CodePhone Number CLINISYNC [facility] documented in this encounter Visit Diagnoses Not on filedocumented in this encounter Additional Health Concerns Active ProblemsNoted DateDiagnosed DateOB Ejnukyxia16/03/2025 AssessmentNoted TimePHQ-9 Depression Total Score: 12009/22/2023 2:00 PM EST documented as of this encounter Care Teams Team MemberRelationshipSpecialtyStart DateEnd Date Marino Joseph MD [address] [place] [address] PCP - GeneralFamily Tgzjhlbx89/12/25documented as of this encounter
--- OUTSIDE RECORDS SUMMARY | 2025-08-06 08:18 | XMS_ITS | Encounter Summary ---
Author Organization [facility] Address [address] [facility] [place] [address] Care Team Providers Care Lead Burner Supervisor Name Role Phone Marino Joseph MD Primary Care Provider [phone] Encounter Details DateTypeDepartmentCare Team (Latest Contact Info)Zgawumkefgd72/16/2025Travel Social History Tobacco UseTypesPacks/DayYears UsedDateSmoking Tobacco: NeverPassive [...] a week 06/29/2023How often do you attend advent or buddhist services?Patient declined 06/29/2023o you belong to any clubs or organizations such as advent groups, unions, fraternal or athletic groups, or school groups?No06/29/2023How often do you attend meetings of the clubs or organizations you belong to?Patient declined 06/29/2023re you , , , , never , or living with a partner?Patient yqeqipcp27/15/2023UDIT-CAnswerDate RecordedQ1: How often do you have a [...] and heating?Not very hard06/29/2023HQ-2AnswerDate RecordedPatient Health Questionnaire-2 Zfqwt286Finsanpete valley [facility] [place] of Occupational Health - Occupational Stress QuestionnaireAnswerDate RecordedDo you feel stress - tense, restless, nervous, or anxious, or unable to sleep at night because your mind is troubled all the time - these days?To some ebqkee8706/29/2023Exercise Vital SignAnswerDate RecordedOn average, how many days per week do you engage in moderate to strenuous exercise (like a brisk walk)?Patient xbolqlqw07/15/2023On average, how many minutes do you engage in exercise at this level?Patient uohodihg58/15/2023Hunger Vital SignAnswerDate RecordedWithin the past 12 months, [...] in ashelter (including now)?No06/29/2023Estimated Date of Delivery HfavfxqmZux30/10/2025Based on UltrasoundSex and Gender InformationValueDate RecordedSex Assigned at EwuccVolshf30/12/2023 9:46 AM EDTLegal SexFemale 10/27/2022 6:38 PM EDTGender ZoaavzkiCijklg65/12/2023 9:46 AM EDTSexual OrientationChoose not to ytvtpmbb13/12/2023 9:46 AM EDTdocumented as of this encounter Plan of Treatment DateTypeDepartmentCare Team (Latest Contact Info)Vwuvifhnbep15/30/2025 11:00 AM ESTTelemedicine JENNY MERCER [address] [place] [address] Maria T Montejo, EVY [address] [place] [address] documented as of this encounter Goals GoalPatient Goal TypeAssociated ProblemsRecent ProgressPatient-Stated?Author Reminders Care PlanOB RemindersNoOpen Scheduling, Backgrounddocumented as of this encounter Visit Diagnoses Not on filedocumented in this encounter Additional Health Concerns Active ProblemsNoted DateDiagnosed DateOB Nrargomgz51/03/2025 AssessmentNoted TimePHQ-9 Depression Total Score: 1202 2:00 PM EST documented as of this encounter Care Teams Team MemberRelationshipSpecialtyStart DateEnd Date Marino Joseph MD [address] [place] [address] PCP - GeneralFamily Vvoroiky06/12/25documented as of this encounter
--- OUTSIDE RECORDS SUMMARY | 2025-08-06 08:18 | XMS_ITS | Encounter Summary ---
Author Organization [facility] Address [address] [place] [address] Care Team Providers Care Rotary Drum Tanner Name Role Phone Marino Joseph MD Primary Care Provider Encounter Details DateTypeDepartmentCare Team (Latest Contact Info)Enzuxvtbgdp61/15/2025Clinisync Result Encounter [facility] External Department Unsolicited Rolando Montejo, CNM [address] [place] [id number] Social History Tobacco UseTypesPacks/DayYears UsedDateSmoking Tobacco: NeverPassive [...] a week 06/29/2023How often do you attend denominational or adventism services?Patient declined 06/29/2023o you belong to any clubs or organizations such as denominational groups, unions, fraKey Ring or athletic groups, or school groups?No06/29/2023How often do you attend meetings of the clubs or organizations you belong to?Patient declined 06/29/2023re you , , , , never , or living with a partner?Patient qpdzqmye62/15/2023UDIT-CAnswerDate RecordedQ1: How often do you have a [...] and heating?Not very hard06/29/2023HQ-2AnswerDate RecordedPatient Health Questionnaire-2 Yycfc287Finamerican fork hospital [place] of Occupational Health - Occupational Stress QuestionnaireAnswerDate RecordedDo you feel stress - tense, restless, nervous, or anxious, or unable to sleep at night because your mind is troubled all the time - these days?To some zpvxdi6806/29/2023Exercise Vital SignAnswerDate RecordedOn average, how many days per week do you engage in moderate to strenuous exercise (like a brisk walk)?Patient /15/2023On average, how many minutes do you engage in exercise at this level?Patient dyweknqj54/15/2023Hunger Vital SignAnswerDate RecordedWithin the past 12 months, [...] steady place to sleep or slept in [place] (including now)?No06/29/2023Estimated Date of Delivery PsjtwsveEnx37/10/2025Based on UltrasoundSex and Gender InformationValueDate RecordedSex Assigned at XuecgTgbnyo72/12/2023 9:46 AM EDTLegal SexFemale 10/27/2022 6:38 PM EDTGender RevosoknGjsgfc02/12/2023 9:46 AM EDTSexual OrientationChoose not to oswzgtgy74/12/2023 9:46 AM EDTdocumented as of this encounter Plan of Treatment DateTypeDepartmentCare Team (Latest Contact Info)Fbcldrvjcqm27/30/2025 11:00 AM ESTTelemedicine [facility] [address] [place] [address] Rolando Montejo, EVY [address] [place] [address] documented as of this encounter Goals GoalPatient Goal TypeAssociated ProblemsRecent ProgressPatient-Stated?Author Reminders Care PlanOB RemindersNoOpen Scheduling, Backgrounddocumented as of this encounter Procedures Procedure NamePriorityDate/TimeAssociated DiagnosisCommentsUS OB BPP W NON-CLRRZX8407/29/2025 4:17 PM EST documented in this encounter Results * US OB BPP W NON-STRESS (07/29/2025 4:17 PM EST)Anatomical Region LateralityModalityOtherSpecimen (Source)Anatomical Location / Laterality Collection Method / VolumeCollection TimeReceived Time07/29/2025 4:17 PM EST Narrative 07/29/2025 4:20 PM EST [facility] ?[address] ? [place] [address] ? Ultrasound Report ? Signed ? Patient: CHANGJOSE L LAWRENCE ?MR#: [id number] ?? : 2000 ?Acct:[id number] ?? Age/Sex: 24 / F ?ADM Date: 07/29/25 ?? Loc: [facility] ??250-1 ? Attending Dr: ROLANDO MONTEJO APRN, CNM ? Ordering Physician: ROLANDO MONTEJO APRN, CNM ?? Date of Service: 07/29/25 ?? Procedure(s): US OB BPP w non-stress ?? Accession Number(s): [id number] ? cc: ROLANDO MONTEJO APRN, CNM; MARINO JOSEPH M.D. ? [facility] ? [address] ? [place] [address] ? Patient Name: ?? JOSE L CHANG ? MRN: [facility]:[id number] ? date: 2000 ?Sex: F ?? Assigned Patient Location: [facility] ?? Current Patient Location: [facility] ?? Accession/Order Number: [id number] ?? Exam Date: 07/29/2025 ??15:35 ?Report Date: 07/29/2025 ??16:17 ? At the request of: ?? ROLANDO ??JAKUB ??HUMERA RATLIFF ? Procedure: ??US OB BPP w non-stress ? Biophysical profile. ? Reason for exam: Post dates ? COMPARISON: 07/26/2025 ? TECHNIQUE: Transabdominal imaging of the gravid uterus was obtained. ? FINDINGS: The bologna lacer reports a BPP of 8 out of 8. ??DAVID is normal at 13.1 ?? cm. ?? heart rate 136 bpm. ? US/US OB BPP w non-stress ?? IMPRESSION: BPP 8 out of 8. ? Impression dictated by: Siva Sung Jr., D.O. ??07/29/2025 4:17 PM ? Dictation Location: RADIO-PC-22 ? Electronically authenticated by: [id number] ??Y ?? Date: 07/29/2025 ??16:17 ? Dictated By: ?Siva Sung M.D. ? Signed By: ?07/29/25 1620 ? DD/ 1617 ? TD/TT: ? Transport Manager: Procedure Note Radiology, Radiologist, MD - 07/29/2025 [place] [address] Ultrasound Report Signed Patient: JOSE L CHANG MMR#: [id number] : 2000Acct:[id number] Age/Sex: 24 / FADM Date: 07/29/25 Loc: [facility] 250-[address]: ROLANDO MONTEJO APRN, CNM Ordering Physician: ROLANDO MONTEJO APRN, CNM Date of Service: 07/29/25 Procedure(s): US OB BPP w non-stress Accession Number(s): [id number] cc: ROLANDO MONTEJO APRN, CNM; MARINO JOSEPH M.D. The [address] [address] Patient Name: JOSE L CHANG MRN: [facility]:[id number] date: 2000 Sex: F Assigned Patient Location: [facility] Current Patient Location: [facility] Accession/Order Number: [id number] Exam Date: 07/29/2025 15:35 Report Date: 07/29/2025 16:17 At the request of: ROLANDO MONTEJO APRN, CNM Procedure: US OB BPP w non-stress Biophysical profile. Reason for exam: Post dates COMPARISON: 07/26/2025 TECHNIQUE: Transabdominal imaging of the gravid uterus was obtained. FINDINGS: The bologna lacer reports a BPP of 8 out of 8. DAVID is normal at13.1 cm. heart rate 136 bpm. US/US OB BPP w non-stress IMPRESSION: BPP 8 out of 8. Impression dictated by: Siva Sung Jr., D.O. 07/29/2025 4:17 PM Dictation Location: [place] [address] Electronically authenticated by: [id number] Y Date: 6:17 Dictated By: Siva Sung M.D. Signed By:07/29/25 1620 DD/ 161 TD/TT: Transport Manager: Authorizing ProviderResult TypeResult StatusValeriraven Montejo [facility] Edited Result - Final documented in this encounter Visit Diagnoses Not on filedocumented in this encounter Additional Health Concerns Active ProblemsNoted DateDiagnosed DateOB Iykufnqas63/03/2025 AssessmentNoted TimePHQ-9 Depression Total Score: 12009/22/2023 2:00 PM EST documented as of this encounter Care Teams Team MemberRelationshipSpecialtyStart DateEnd Date Marino Joseph MD [address] [place] [address] PCP - GeneralFamily Cmzfvkpb30/12/25documented as of this encounter
--- OUTSIDE RECORDS SUMMARY | 2025-08-06 08:18 | XMS_ITS | Encounter Summary ---
Author Organization [facility] Address [address] [place] [address] Care Team Providers Care Foil Spinner Name Role Phone Marino Joseph MD Primary Care Provider [phone] Encounter Details DateTypeDepartmentCare Team (Latest Contact Info)Gnhlksmayus58/16/2025Orders Only [facility] OBGYN [address] [place] [phone] Maria T Montejo, TSERING [address] [place], [place] [phone] Post-term , 40-42 weeks of gestation ([facility]) Social History Tobacco UseTypesPacks/DayYears UsedDateSmoking Tobacco: NeverPassive [...] a week 06/29/2023How often do you attend mandaen or bahai services?Patient declined 06/29/2023o you belong to any clubs or organizations such as mandaen groups, unions, fraActual Experience or athletic groups, or school groups?No06/29/2023How often do you attend meetings of the clubs or organizations you belong to?Patient declined 06/29/2023re you , , , , never , or living with a partner?Patient kjuzuyjg54/15/2023UDIT-CAnswerDate RecordedQ1: How often do you have a [...] and heating?Not very hard06/29/2023HQ-2AnswerDate RecordedPatient Health Questionnaire-2 Fxtth668[facility] [place] of Occupational Health - Occupational Stress QuestionnaireAnswerDate RecordedDo you feel stress - tense, restless, nervous, or anxious, or unable to sleep at night because your mind is troubled all the time - these days?To some tvgici4506/29/2023Exercise Vital SignAnswerDate RecordedOn average, how many days per week do you engage in moderate to strenuous exercise (like a brisk walk)?Patient zetjjvri04/15/2023On average, how many minutes do you engage in exercise at this level?Patient igladhji95/15/2023Hunger Vital SignAnswerDate RecordedWithin the past 12 months, [...] steady place to sleep or slept in springdaleelter (including now)?No06/29/2023Estimated Date of Delivery BvqzwrhlNmx62/10/2025Based on UltrasoundSex and Gender InformationValueDate RecordedSex Assigned at OrmbwWfxhrw61/12/2023 9:46 AM EDTLegal SexFemale 10/27/2022 6:38 PM EDTGender KayoyqplKiqsav11/12/2023 9:46 AM EDTSexual OrientationChoose not to qxoyaqsa67/12/2023 9:46 AM EDTdocumented as of this encounter Plan of Treatment DateTypeDepartmentCare Team (Latest Contact Info)Thnwjofrepi16/30/2025 11:00 AM ESTTelemedicine JENNY [facility] [address] [place] [address] Maria T Montejo CNM [address] [place] [address] documented as of this encounter Goals GoalPatient Goal TypeAssociated ProblemsRecent ProgressPatient-Stated?Author Reminders Care PlanOB RemindersNoOpen Scheduling, Backgrounddocumented as of this encounter Results * US OB follow [...] BY: Ambrocio Lang MD Authorizing ProviderResult TypeResult StatusValeriraven Montejo CNCAMG OB US PROCEDURESFinal Result documented in this encounter Visit Diagnoses Diagnosis Post-term , 40-42 weeks of gestation ([facility]HS-HCC) Post-term , 40-42 weeks of gestation ([facility]HS-HCC) documented in this encounter Additional Health Concerns Active ProblemsNoted DateDiagnosed DateOB Unaywfmfj39/03/2025 AssessmentNoted TimePHQ-9 Depression Total Score: 12009/22/2023 2:00 PM EST documented as of this encounter Care Teams Team MemberRelationshipSpecialtyStart DateEnd Date Marino Joseph MD [address] [place] [address] PCP - GeneralFamily Ehpvnidc63/12/25documented as of this encounter
--- OUTSIDE RECORDS SUMMARY | 2025-08-06 08:18 | XMS_ITS | Clinical Summary ---
Author Organization [facility] Address [address] [place] [address] Care Team Providers Care Bicycle I Assembler Name Role Phone Marino Joseph MD Primary Care Provider [phone] Allergies No known active allergies Medications MedicationSigDispense QuantityRefillsLast FilledStart DateEnd DateStatus Vit-Fe Fumarate-FA ( Vitamins) 28-0.8 MG tablet Indications: related condition in third trimester (HHS-HCC)Take 1 tablet by mouth Daily 30 tablet 5Active Vit-Fe Fumarate-FA ( Vitamins) 28-0.8 MG tablet Take 1 tablet by mouth DailyDiscontinued(Reorder) Active Problems ProblemNoted DateDiagnosed DateTendonitis of ankle, left06/29/2023Tendonitis of wrist, left06/29/20232453Uidcujh48/06/2023Elevated platelet count01/18/2023Moderate episode of recurrent major depressive oesistkr21/06/2023Overweight (BMI 25.0-29.9)01/18/2023Estimated Date of WzmgaaemGixekoclJkr89/10/2025ased on Ultrasound Resolved Problems ProblemNoted DateDiagnosed DateResolved DateAllergic ajodubpl66/06/2023 06/29/2023Enlarged Encounters DateTypeDepartmentCare RtfbClmkckoctel74/18/2025Clinisync Result Encounter [facility] Department Unsolicited Rolando Montejo, CNM 07/31/2025External Result Encounter [facility] External Department Unsolicited Rolando Montejo, CNM 5Clinisync Result Encounter [facility] External Department Unsolicited Rolando Montejo, CNM 07/30/2025 3:15 PM ESTAncillary Procedure [facility] [address] [phone] Post-term , 40-42 weeks of gestation ([facility])07/30/2025Travel 07/30/2025Orders Only [facility] [address] [place] [phone] Rolando Montejo, CNM Post-term , 40-42 weeks of gestation ([facility])5Clinisync Result Encounter [facility] External Department Unsolicited Rolando Montejo, CNM 5Clinisync Result Encounter [facility] External Department Unsolicited Rolando Montejo, CNM 07/26/2025Orders Only [facility] [address] [place] [phone] Rolando Montejo, CNM Post-term , 40-42 weeks of gestation ([facility])07/22/2025 1:30 PM EST Routine [facility] [address] [place] [phone] Rolando Montejo, CNM Encounter for care of first , third trimester ([facility]) (Primary Dx)5Bamboo flowsheet [facility] [address] [place] [phone] Rolando Montejo, CNM 07/15/2025 1:30 PM ESTRoutine [facility] [address] [place] [phone] Rolando Montejo CNM Encounter for care of first , third trimester ([facility]) (Primary Dx)5Bamboo flowsheet JENNY Rawlinsfreddie MERCER [address] [facility] [place] [address] Rolando Montejo CNM 07/08/2025Refill [facility] [address] [place] [address] Marino Joseph MD related condition in third trimester ([facility])07/02/2025 9:00 AM EST [facility] [address] [place] [address] Marino Joseph MD Routine general medical examination at a health care facility (Primary Dx) 07/02/20254387Hfekaz77/17/2025 2:00 PM ESTInitial JENNY [facility] [address] [facility] [place] [address] Rolando Montejo CNM GA: [id number] flowsheet THUYDaniel GarzaRawlinsfreddie MERCER [address] [facility] [place] [address] Rolando Montejo CNM 06/20/2025Telephone [facility] [place] [address] Marino Joseph MD due for apptfrom Last 3 Months Immunizations ImmunizationAdministration DatesNext DueDTaP, Dintokuxmuy69/20/2005,09/04/2001, 03/01/2001,2000,2000HPV, Qkgemhjdpgwj47/15/2014,08/17/2013, 06/28/2013Hep A, ped/adol, 2 dose12/27/2013,06/28/2013Hep B, Adolescent or Wvxdjgnpo68/21/2002,2000,2000IPV09/03/2004,03/01/2001,2000, 2000Influenza, injectable, quadrivalent, preservative free04/27/2019, 05/26/2017,06/09/2015Influenza, seasonal, apxyqahthy29/15/3096SSG4509/03/2004, 09/04/2001Meningococcal YNT0X5306/28/2013Tdap04/09/20137889Zbjzrmdxg14/03/2014, 09/04/2001 Family History Medical HistoryRelationNameCommentsAlcohol abuseNeg HxDrug abuseNeg HxMelanoma Neg HxRelationNameStatusCommentsFatherAliveMotherAliveSister2 Social History Tobacco UseTypesPacks/DayYears UsedDateSmoking Tobacco: NeverPassive Smoke Exposure: PastSmokeless Tobacco: Never Tobacco Cessation:Counseling Given: Not Answered Alcohol UseStandard Drinks/WeekCommentsYes0 (1 standard drink = 0.6 oz pure alcohol)Caffine intake: 3-4 per week, energy drinks while on campus, not while home for the summermiliation, Afraid, Rape, and Kick questionnaireAnswerDate RecordedWithin the [...] times a week06/29/2023How often do you attend jain or bahai services?Patient xbchnoes38/15/2023Do you belong to any clubs or organizations such as jain groups, unions, fraternal or athletic groups, or school groups?No06/29/2023How often do you attend meetings of the clubs or organizations you belong to?Patient akpfhyxz51/15/2023re you , , , , never , or living with a partner?Patient ysgfqpaj61/15/2023UDIT-CAnswerDate RecordedQ1: How often do you have a [...] heating?Not very hard06/29/2023HQ-2AnswerDate RecordedPatient Health Questionnaire-2 Score3 09/22/2023[facility] [place] of Occupational Health - Occupational Stress QuestionnaireAnswerDate RecordedDo you feel stress - tense, restless, nervous, or anxious, or unable to sleep at night because yourmind is troubled all the time - these days?To some rdrxpa2706/29/2023Exercise Vital SignAnswerDate Recorded On average, how many days per week do you engage in moderate to strenuous exercise (like a brisk walk)?Patient oqmccvuq63/15/2023On average, how many minutes do you engage in exercise at this level?Patient injmlesc08/15/2023Hunger Vital SignAnswerDate RecordedWithin the past 12 months, [...] to sleep or slept in ashelter (including now)?No 3Estimated Date of NudicdwwNxerhoeuThx02/10/2025Based on UltrasoundSex and Gender InformationValueDate RecordedSex Assigned at Pgtvuh6301/24/2023 9:46 AM EDTLegal LrgOxydkl72/15/2023 6:38 PM EDTGender Identity Gujghi3201/24/2023 9:46 AM EDTSexual OrientationChoose not to awzjqxsy64/12/2023 9:46 AM EDT Last Filed Vital Signs Vital SignReadingTime TakenCommentsBlood Fwmnnkje881/7007/22/2025 1:22 PM EST Zhiyo383907/02/2025 9:04 AM CMAEvjsaobqwhd45.3 ??C (97.4 ??F)07/02/2025 9:04 AM ESTRespiratory Baxb804009/01/2024 9:04 AM ESTOxygen Domkkwjpeu07%07/02/2025 9:04 AM ESTInhaled Oxygen Concentration--Cxuxpf35.3 kg (166 lb)07/22/2025 1:22 PM EST Cacuog568.3 cm (4' 10.4 )07/02/2025 9:04 AM ESTBody Mass Index34.22109/01/2024 9:04 AM EST Plan of Treatment DateTypeDepartmentCare Team (Latest Contact Info)Uwlrqiglxfj46/30/2025 11:00 AM ESTTelemedicine [facility] OBBRENDA [address] [place] [address] Rolando Montejo, EVY [address] [place] [address] Health MaintenanceDue DateLast DoneCommentsInfluenza SccmjfkRmqkpwczw05/15/2025, 04/27/2019, 05/26/2017, Additional history existsPneumococcal Vaccine: Pediatrics (0 to 5 Years) and At-Risk Patients (6 to 64 Years)Aged OutNo longer eligible based on patient's age to complete this topic Goals GoalPatient Goal TypeAssociated ProblemsRecent ProgressPatient-Stated?Author Reminders Care PlanOB RemindersNoOpen Scheduling, Background Procedures Procedure NamePriorityDate/TimeAssociated DiagnosisCommentsALL CBC WITH AUTO CUDUXbnthgo44/18/2025 6:13 AM EST ALL TYPE AND XQHCIWZusikda12/17/2025 4:[address] [facility] CBC WITH PLATELET NO EKEMUYKEICKBIyeousb09/17/2025 4:00 AM EST [facility] DRUG SCREEN RAPID (URINE)Nnwqlau1107/31/2025 2:27 AM EST URINE CULTURE - JRZMJyshbgs70/17/2025 2:27 AM EST [facility] UA (CLEAN/CATCH) ACTIVATED SLUDGE ATTENDANT/MICRO IF IND.Npvmqff5407/31/2025 2:27 AM EST CULTURE, URINE, DQTPAONVzyqvrc03/17/2025 2:27 AM EST US OB FOLLOW UP TRANSABDOMINAL VOUARHGVRadybxk65/16/2025 3:42 PM EST Post-term , 40-42 weeks of gestation ([facility]) US OB BPP W NON-BVDQIC0207/29/2025 4:17 PM EST US OB BPP W NON-ULFLKL8607/26/2025 4:50 PM EST DRUG TOX MONITORING 6 SCREEN, HNOLFIuiudri49/17/2025 2:30 PM EST related condition in third trimester (HHS-HCC) CULTURE, URINE, VMMUQZAYkvfhkw25/17/2025 2:30 PM EST related condition in third trimester ([facility]) from Last 3 Months Results * (ABNORMAL) ALL CBC WITH AUTO DIFF (08/01/2025 6:13 AM EST)ComponentValueRef RangeTest MethodAnalysis TimePerformed AtPathologist SignatureTBH WBC20.9(H) 4.0 - 11.0 10 3/uLTBHTBH RBC3.35(L)4.20 - 5.40 10 6/uLTBHTBH HGB10.4(L)12.0 - 16.0 g/dLTBHTBH HCT30.8(L)36.0 - 48.0 %TBHTBH MCV91.981.0 - 99.0 fLTBHTBH MCH 31.026.7 - 34.0 pgTBHTBH MCHC33.829.9 - 35.2 g/dLTBHTBH RDW14.411.0 - 15.0 % TBHTBH KQX603130 - 450 10 3/uLTBHTBH MPV9.69.5 - 13.5 fLTBHNEUTROPHILS PERCENT AUTO78.1(H)43.0 - 75.0 %TBHLYMPHOCYTES PERCENT AUTO14.7(L)20.5 - 60.0 %TBH MONOCYTES PERCENT AUTO6.31.7 - 12.0 %TBHTBH EO %0.2(L)0.9 - 7.0 %TBHBASOPHILS PERCENT AUTO0.20.2 - 2.0 %TBHIMMATURE GRANULOCYTES PCT AUTO0.50.0 - 0.5 %TBH NEUTROPHILS ABSOLUTE AUTO16.3(H)1.4 - 6.5 10 3/uLTBHLYMPHOCYTES ABSOLUTE AUTO 3.11.2 - 3.8 10 3/uLTBHMONOCYTES ABSOLUTE AUTO1.3(H)0.3 - 0.8 10 3/uLTBHTBH EO #0.00.0 - 0.7 10 3/uLTBHBASOPHILS ABSOLUTE AUTO0.00.0 - 0.1 10 3/uLTBHIMMATURE GRANULOCYTES ABS AUTO0.10(H)0.00 - 0.03 10 3/uLTBHSpecimen (Source)Anatomical Location / LateralityCollection Method / VolumeCollection TimeReceived Time 08/01/2025 6:13 AM EST08/01/2025 6:23 AM EST Narrative [facility] - 08/01/2025 6:29 AM EST Authorizing ProviderResult TypeResult StatusValeriraven Montejo [facility]ITALLINISYNCFinal ResultPerforming OrganizationAddressCity/State/ZIP CodePhone Number [facility] * (ABNORMAL) [facility] CBC WITH PLATELET NO DIFFERENTIAL (07/31/2025 4:00 AM EST) ComponentValueRef RangeTest MethodAnalysis TimePerformed AtPathologist SignatureTBH WBC15.0(H)4.0 - 11.0 10 3/uLTBHTBH RBC4.414.20 - 5.40 10 6/uLTBH TBH HGB13.612.0 - 16.0 g/dLTBHTBH HCT39.836.0 - 48.0 %TBHTBH MCV90.281.0 - 99.0 fLTBHTBH MCH30.826.7 - 34.0 pgTBHTBH MCHC34.229.9 - 35.2 g/dLTBHTBH RDW 14.011.0 - 15.0 %TBHTBH MXF293563 - 450 10 3/uLTBHTBH MPV9.79.5 - 13.5 fLTBH Specimen (Source)Anatomical Location / LateralityCollection Method / Volume Collection TimeReceived Time07/31/2025 4:00 AM EST07/31/2025 4:10 AM EST Narrative [facility] - 07/31/2025 4:13 AM EST Authorizing ProviderResult TypeResult StatusValeramses Montejo [facility]ITALLINISYNCFinal ResultPerforming OrganizationAddressCity/State/ZIP CodePhone Number [facility] * ALL TYPE AND SCREEN (07/31/2025 4:00 AM EST)ComponentValueRef RangeTest Method Analysis TimePerformed AtPathologist SignatureBLOOD TYPEO PositiveTBHANTIBODY SCREENNEGATIVETBHSpecimen (Source)Anatomical Location / LateralityCollection Method / VolumeCollection TimeReceived Time07/31/2025 4:00 AM EST07/31/2025 4:10 AM EST Narrative [facility] - 07/31/2025 4:56 AM EST [facility] , ?? Authorizing ProviderResult TypeResult StatusValeramses Montejo [facility]ITALLINISYNCFinal ResultPerforming OrganizationAddressCity/State/ZIP CodePhone Number [facility] * URINE CULTURE - [facility] (07/31/2025 2:27 AM EST)ComponentValueRef RangeTest MethodAnalysis TimePerformed AtPathologist SignatureURINE CULTURE - [facility] ??Urine Culture - FR SEEFRMC [facility] RESULT^[facility] RESULT TBHURINE CULTURE - FRMCSEEN SEE SCANNED REPORT, NORMAL^SEE SCANNED REPORT, NORMALTBHSpecimen (Source)Anatomical Location / LateralityCollection Method / VolumeCollection TimeReceived Time07/31/2025 2:27 AM EST07/31/2025 3:19 AM EST Narrative [facility] - 08/02/2025 3:02 PM EST Authorizing ProviderResult TypeResult StatusValerie L Ebonyo CNMLAB BLOOD ORDERABLESFinal ResultPerforming OrganizationAddressCity/State/ZIP CodePhone Number [facility] * (ABNORMAL) [facility] UA (CLEAN/CATCH) ACTIVATED SLUDGE ATTENDANT/MICRO IF IND. (07/31/2025 2:27 AM EST) ComponentValueRef [...] 3:24 AM EST Authorizing ProviderResult TypeResult StatusValerie L Floro CNLINISYNCFinal ResultPerforming OrganizationAddressCity/State/ZIP CodePhone Number [facility] * [facility] DRUG SCREEN RAPID (URINE) (07/31/2025 [...] 07/31/2025 3:44 AM EST Authorizing ProviderResult TypeResult StatusValeramses Montejo [facility]INISYNCFinal ResultPerforming OrganizationAddressCity/State/ZIP CodePhone Number [facility] * Urine culture (07/31/2025 2:27 AM EST) Only the most recent of2 resultswithin the time period is included. ComponentValueRef RangeTest MethodAnalysis TimePerformed AtPathologist Signature [facility] NOTE >100,000 colonies/ml mixed ? bacterial skin contaminants ? 2 Days 08/02/2025 9:59 AM ESTSelect Medical Specialty [facility] CtrSpecimen (Source)Anatomical Location / LateralityCollection Method / VolumeCollection TimeReceived TimeUrine Urine specimen obtained by clean catch procedure / Oocplso2307/31/2025 2:27 AM EST 07/31/2025 2:52 PM ESTComment:Clean-Voided Midstream Narrative [facility] - 08/02/2025 9:59 AM EST Diagnosis: Contractions Comment: Authorizing ProviderResult TypeResult StatusValeriraven Eduard Montejo CNMLAB MICROBIOLOGY - GENERAL ORDERABLESFinal ResultPerforming OrganizationAddressCity/State/[facility] CodePhone Number [facility] [address] [place] [address], [facility] [address] [place] [address] * OB follow up transabdominal approach (07/30/2025 3:42 [...] Lang MD Authorizing ProviderResult TypeResult StatusValeriraven Montejo [facility] OB US PROCEDURESFinal Result * US OB BPP W NON-STRESS (07/29/2025 4:17 PM EST) Only the most recent of2 resultswithin the time period is included. Anatomical RegionLateralityModalityOtherSpecimen (Source)Anatomical Location / LateralityCollection Method / VolumeCollection TimeReceived Time07/29/2025 4:17 PM EST Narrative 07/29/2025 4:20 PM EST [facility] ?[address] ? [place] [address] ? Ultrasound Report ? Signed ? Patient: JOSE L CHANG ?MR#: [id number] ?? : 2000 ?Acct:[id number] ?? Age/Sex: 24 / F ?ADM Date: 07/29/25 ?? Loc: [facility] ??250-1 ? Attending Dr: ROLANDO MONTEJO APRN, CNM ? Ordering Physician: ROLANDO MONTEJO APRN, CNM ?? Date of Service: 07/29/25 ?? Procedure(s): US OB BPP w non-stress ?? Accession Number(s): [id number] ? cc: ROLANDO MONTEJO APRN, EVY; MARINO JOSEPH M.D. ? [facility] ? [address] ? [place] [address] ? Patient Name: ?? JOSE L CHANG ? MRN: [facility]:[id number] ? date: 2000 ?Sex: F ?? Assigned Patient Location: [facility] ?? Current Patient Location: FB ?? Accession/Order Number: [id number] ?? Exam Date: 07/29/2025 ??15:35 ?Report Date: 07/29/2025 ??16:17 ? At the request of: ?? ROLANDO ??JAKUB ??HUMERA RATLIFF ? Procedure: ??US OB BPP w non-stress ? Biophysical profile. ? Reason for exam: Post dates ? COMPARISON: 07/26/2025 ? TECHNIQUE: Transabdominal imaging of the gravid uterus was obtained. ? FINDINGS: The building construction superintendent reports a BPP of 8 out of 8. ??DAVID is normal at 13.1 ?? cm. ?? heart rate 136 bpm. ? US/US OB BPP w non-stress ?? IMPRESSION: BPP 8 out of 8. ? Impression dictated by: Siva Sung Jr., D.O. ??07/29/2025 4:17 PM ? Dictation Location: [facility]--22 ? Electronically authenticated by: [id number] ??Y ?? Date: 07/29/2025 ??16:17 ? Dictated By: ?Siva Sung M.D. ? Signed By: ?07/29/25 1620 ? DD/ 1617 ? TD/TT: ? Service Observer Chief: Procedure Note Radiology, Radiologist, MD - 07/29/[address] [address] Ultrasound Report Signed Patient: JOSE L CHANG [facility]#: [id number] : 2000Acct:[id number] Age/Sex: 24 / FADM Date: 07/29/25 Loc: [facility] 250-[address]: ROLANDO MONTEJO APRN, CNM Ordering Physician: ROLANDO MONTEJO APRN, CNM Date of Service: 07/29/25 Procedure(s): US OB BPP w non-stress Accession Number(s): [id number] cc: ROLANDO MONTEJO APRN, CNM; MARINO JOSEPH M.D. [place] [address] Patient Name: JOSE L CHANG MRN: [facility]:[id number] date: 2000 Sex: F Assigned Patient Location: [facility] Current Patient Location: [facility] Accession/Order Number: [id number] Exam Date: 07/29/2025 15:35 Report Date: 07/29/2025 16:17 At the request of: ROLANDO MONTEJO APRN, CNM Procedure: US OB BPP w non-stress Biophysical profile. Reason for exam: Post dates COMPARISON: 07/26/2025 TECHNIQUE: Transabdominal imaging of the gravid uterus was obtained. FINDINGS: The building construction superintendent reports a BPP of 8 out of 8. DAVID is normal at13.1 cm. heart rate 136 bpm. US/US OB BPP w non-stress IMPRESSION: BPP 8 out of 8. Impression dictated by: Siva Sung Jr., D.O. 07/29/2025 4:17 PM Dictation Location: [place] [address] Electronically authenticated by: [id number] Y Date: 6:17 Dictated By: Siva Sung M.D. Signed By:07/29/25 1620 DD/ 1617 TD/TT: Service Observer Chief: Authorizing ProviderResult TypeResult StatusValeriraven [facility] Edited Result - Final * [...] interpreting these drug results, please contact a [employer] Toxicology Specialist: [phone] ( ), M-F, 8am-6pm EST. Specimen (Source)Anatomical Location / LateralityCollection Method / Volume Collection TimeReceived Time07/01/2025 2:30 PM EST07/02/2025 4:36 AM EST Narrative Resulting Agency Comment Performing Organization Information ?Site ID: [id number] ?Name: [employer] [facility] ?Address: [address] [place] [id number] ?Director: Angelo Garland MD Authorizing ProviderResult TypeResult StatusValeriraven Montejo CNMLAB URINE ORDERABLESFinal ResultPerforming OrganizationAddressCity/State/ZIP CodePhone Number [facility] from Last 3 Months Additional Health Concerns Active ProblemsNoted DateDiagnosed DateOB Eqndclfpo73/03/2025 [place] [address] Care Teams Team MemberRelationshipSpecialtyStart DateEnd Date Marino Joseph MD [address] [place] [address] PCP - GeneralFaokly Pvmzloeu72/12/25
--- OUTSIDE RECORDS SUMMARY | 2025-08-06 08:18 | XMS_ITS | Encounter Summary ---
Author Organization [facility] Address [address] [place] [address] Care Team Providers Care Bobbin Sorter Name Role Phone Marino Joseph MD Primary Care Provider [phone] Encounter Details DateTypeDepartmentCare Team (Latest Contact Info)Nhpdumfvucg74/18/2025Clinisync Result Encounter [facility] Unsolicited Maria T Montejo, CNM [address] [place] [id number] Social History Tobacco UseTypesPacks/DayYears UsedDateSmoking Tobacco: NeverPassive [...] a week 06/29/2023How often do you attend spiritism or orthodoxy services?Patient declined 06/29/2023o you belong to any clubs or organizations such as spiritism groups, unions, fraOrderBorder or athletic groups, or school groups?No06/29/2023How often do you attend meetings of the clubs or organizations you belong to?Patient declined 06/29/2023re you , , , , never , or living with a partner?Patient gjgfyydq69/15/2023UDIT-CAnswerDate RecordedQ1: How often do you have a [...] and heating?Not very hard06/29/2023HQ-2AnswerDate RecordedPatient Health Questionnaire-2 Takxq231[facility] [place] [facility] - Occupational Stress QuestionnaireAnswerDate RecordedDo you feel stress - tense, restless, nervous, or anxious, or unable to sleep at night because your mind is troubled all the time - these days?To some rgmnws2806/29/2023Exercise Vital SignAnswerDate RecordedOn average, how many days per week do you engage in moderate to strenuous exercise (like a brisk walk)?Patient ltanhdtf79/15/2023On average, how many minutes do you engage in exercise at this level?Patient ymtyybux07/15/2023Hunger Vital SignAnswerDate RecordedWithin the past 12 months, [...] steady place to sleep or slept in [place] (including now)?No06/29/2023Estimated Date of Delivery HltybgbyQzd61/10/2025Based on UltrasoundSex and Gender InformationValueDate RecordedSex Assigned at UemxsCiahrt01/12/2023 9:46 AM EDTLegal SexFemale 10/27/2022 6:38 PM EDTGender FzwogxlhJgxipo26/12/2023 9:46 AM EDTSexual OrientationChoose not to vmuciemc45/12/2023 9:46 AM EDTdocumented as of this encounter Plan of Treatment DateTypeDepartmentCare Team (Latest Contact Info)Decxyspwlav36/30/2025 11:00 AM ESTTelemedicine [facility] [address] [place] [address] Maria T Montejo, EVY [address] [place] [address] documented as of this encounter Goals GoalPatient Goal TypeAssociated ProblemsRecent ProgressPatient-Stated?Author Reminders Care PlanOB RemindersNoOpen Scheduling, Backgrounddocumented as of this encounter Procedures Procedure NamePriorityDate/TimeAssociated DiagnosisCommentsALL CBC WITH AUTO PCOGLifbwqf12/18/2025 6:13 AM EST documented in this encounter Results * (ABNORMAL) ALL CBC WITH AUTO DIFF (08/01/2025 6:13 AM EST)ComponentValueRef RangeTest MethodAnalysis TimePerformed AtPathologist SignatureTBH WBC20.9(H) 4.0 - 11.0 10 3/uLTBHTBH RBC3.35(L)4.20 - 5.40 10 6/uLTBHTBH HGB10.4(L)12.0 - 16.0 g/dLTBHTBH HCT30.8(L)36.0 - 48.0 %TBHTBH MCV91.981.0 - 99.0 fLTBHTBH MCH 31.026.7 - 34.0 pgTBHTBH MCHC33.829.9 - 35.2 g/dLTBHTBH RDW14.411.0 - 15.0 % TBHTBH [id number] - 450 10 3/uLTBHTBH MPV9.69.5 - 13.5 [...] 6:29 AM EST Authorizing ProviderResult TypeResult StatusValeriraven Eduard Montejo [facility]ITALLINISYNCFinal ResultPerforming OrganizationAddressCity/State/ZIP CodePhone Number [facility] documented in this encounter Visit Diagnoses Not on filedocumented in this encounter Additional Health Concerns Active ProblemsNoted DateDiagnosed DateOB Inifopsqo00/03/2025 AssessmentNoted TimePHQ-9 Depression Total Score: 12009/22/2023 2:00 PM EST documented as of this encounter Care Teams Team MemberRelationshipSpecialtyStart DateEnd Date Marino Joseph MD [address] [place] [address] PCP - GeneralFamily Pjdxzaxy06/12/25documented as of this encounter
[2025-08-06 10:28] VITALS: BP 124/86; PULSE 86; TEMP 36.8; O2SAT 98
== END 2025-08-06 10:34 | disposition home or self-care (01) ==
LOC: FBCO 08:13
PROVIDERS: PCP Family Medicine; Visit Provider Midwife
DX: Z39.1 Encounter for care and examination of lactating mother (principal)